=== PATIENT | female | born 1930 | race Caucasian/White ===

== ENCOUNTER 2016-11-12 07:16 | Day surgery (SDC) | payer MEDICARE, OTHER ==
[~2016-11-12] VITALS: Ht 162.6 cm; Wt 59.2 kg
[~2016-11-12 07:16] MED LIST: AC500T PO; BSC10SU PR; DONE5TAB4 PO; EZET10TA5; IBUP-1773 PO; LEVO75TA PO; MENT71OI TOP; MIRA25TA PO; NF-ESOM40C PO; NITR-65 PO; ONDAN4ODT PO; PARO20TA57; PARO40TA47 PO; PNT40TEC; SENN1TAB76 PO; THYR60TA4; TRAZ50TA67; TRIM100T7 PO; TRZ50T PO
[2016-11-12] MEDS ORDERED: 1/2 NS IV SOLUTION 1,000 ML IV ONE (07:19)
--- OUTSIDE RECORDS SUMMARY | 2016-11-12 07:20 | XMS REPORT | Continuity of Care Document ---
Author Author [facility] Organization [facility] Address Unknown Phone Unavailable Care Team Providers Care Pinion Staker Name Role Phone RAFAELA TODD MD PCP Insurance Providers Payer Name Policy Number Subscriber Name Relationship [employer]ps Medicare [id number] Monica Canales 18 Self / Same As Patient For Life [id number] Jay Canales 01 Advance Directives Directive Response Recorded Date/Time Advance Directives No 11/07/16 2:31pm Health Care Power of Gel Coat Sprayer No 11/07/16 2:31pm Organ Donor No 11/07/16 2:31pm Resuscitation Status Full Code 11/07/16 2:31pm Chief Complaint and Reason for Visit Chief Complaint Abdominal/GI Problems Reason for Visit hematochezia Problems Active Problems Medical Problem Onset Date Status Left hip pain Unknown Acute Low back pain Unknown Acute burst fracture L1 vertebral body Unknown Acute Medications Current Home Medications Medication Dose Units Route Directions Days/Qty Instructions Start Date Paroxetine Hcl 40 Mg 40 Mg Oral Daily 09/12/13 Esomeprazole Magnesium 40 Mg 1 Cap Oral Daily 30 09/12/13 Trimethoprim 100 Mg 100 Mg Oral Bedtime 09/12/13 Mirabegron 25 Mg 25 Mg Oral Daily 09/12/13 Acetaminophen 500 Mg 1,000 Mg Oral Three Times A Day 90 10/01/13 Bisacodyl 10 Mg 10 Mg Rectal Daily as needed for Constipation 10 10/01 Levothyroxine Sodium 75 Mcg 75 Mcg Oral Daily@0630 30 10/01/13 Senna 1 Ea 1 Ea Oral Twice A Day 60 10/01/13 Trazodone Hcl 50 Mg 50 Mg Oral Bedtime 30 10/01/13 Ibuprofen 600 Mg 600 Mg Oral Every 6 Hours as needed for Pain 07/19 Past Home Medications Medication Directions Ordered Status Trazodone Hcl 50 Mg Tablet, 11/23/09 Discontinued Paroxetine Hcl 20 Mg Tablet, 11/23/09 Discontinued Thyroid 60 Mg Tablet, 11/23/09 Discontinued Pantoprazole Sodium 40 Mg Tablet., 11/23/09 Discontinued Ezetimibe 10 Mg Tablet, 11/23/09 Discontinued Nitrofurantoin Macrocrystals 100 Mg Capsule, 1 Each Oral Twice A Day Discontinued Donepezil Hcl 5 Mg Tab, 5 Mg Oral Daily 10/01/13 Discontinued Menthol/Lanolin/Calamine/Znox 71 Gm Oint..gm., 0 Gm Topically Three Times A Day 10/01/13 Discontinued Ondansetron Hcl 4 Mg Tab, 4 Mg Oral Give Every 4 Hrs On Schedule as needed for Nausea/Vomiting 10/01/13 Discontinued Social History Social History Problem Response Recorded Date/Time Alcohol Use Denies Use 09/16/2013 1:18pm Recreational Drug Use No 09/16/2013 1:18pm Recent Foreign Travel No 09/16/2013 1:18pm Recent Infectious Disease Exposure No 09/16/2013 1:18pm Hospitalization with Isolation Denies 10/01/2013 5:20pm Sexually Transmitted Disease No 09/16/2013 1:18pm HIV/AIDS No 09/16/2013 1:18pm Smoking Status Former Smoker 11/07/2016 2:31pm Type Used Cigarettes 07/19/2016 12:03am Recent Hopitalizations No 07/19/2016 12:03am Sexually Transmitted Disease No 09/16/2013 1:18pm Hospitalization with Isolation Denies 10/01/2013 5:20pm Hx Sexually Transmitted Disorders No 08/05/2009 11:21pm Query Response Start Date Stop Date Smoking Status Former Smoker Hospital Discharge Instructions No hospital discharge instructions. Plan of Care Discharge Date 11/07/16 6:00pm Disposition 01 HOME, SELF-CARE Condition at Discharge Stable/Unchanged Instructions/Education Provided Gastrointestinal Bleeding (DC) Prescriptions See Medication Section Referrals RAFAELA TODD MD - Primary Care Physician Additional Instructions/Education All discharge instructions reviewed with patient and/or family. Voiced understanding. Call Dr. Beaver's office tomorrow morning before noon. The office number is [phone]. you'll be given an appointment and instructions on colonoscopy. If you continue to have large bloody stools or if you feel dizzy as if she might pass out when standing, return to the emergency room Functional Status No functional status results. Allergies, Adverse Reactions, Alerts Allergen Type Severity Reaction Status Last Updated NKANo Known Allergies Allergy Unknown Active 03/26/06 Immunizations No immunization records. Vital Signs Acute Vital Signs Vital Response Date/Time Temperature (Fahrenheit) 98.5 degrees F (97.6 - 99.5) 11/07/2016 2:31pm Temperature (Calculated Celsius) 36.17076 degrees C (36.4 - 37.5) 11/07/2016 2:31pm Pulse Rate (adult) 83 bpm (60 - 90) 11/07/2016 2:31pm Respiratory Rate 18 bpm (12 - 24) 11/07/2016 2:31pm Blood Pressure 146/58 mm Hg 11/07/2016 2:31pm Blood Pressure Mean 87 mm Hg 11/07/2016 2:31pm Pain Numeric Pain Scale 3 11/07/2016 2:31pm Height (Feet) 5 feet 11/07/2016 2:31pm Height (Inches) 4 inches 11/07/2016 2:31pm Height (Calculated Centimeters) 162.069805 cm 11/07/2016 2:31pm Weight (Pounds) 130 pounds 11/07/2016 2:31pm Weight (Calculated Kilograms) 58.048769 kilograms 11/07/2016 2:31pm Capillary Refill Capillary Refill Less Than 3 Seconds 11/07/2016 2:31pm Height 5 ft 4 in Weight 130 lb Body Mass Index 22.3 kg/m^2 Results Laboratory Results Test Name Result Units Flags Reference Collection Date/Time Result Date/ Time Comments White Blood Count 15.7 10^3/uL H 4.3-11.0 11/07/2016 2:40pm 11/07/2016 3: 01pm Red Blood Count 3.85 10^6/uL L 4.35-5.85 11/07/2016 2:40pm 11/07/2016 3: 01pm Hemoglobin 14.1 G/DL 11.5-16.0 11/07/2016 2:40pm 11/07/2016 3:01pm Hematocrit 41 % 35-52 11/07/2016 2:40pm 11/07/2016 3:01pm Mean Corpuscular Volume 106 FL H 80-99 11/07/2016 2:40pm 11/07/2016 3: 01pm Mean Corpuscular Hemoglobin 37 PG H 25-34 11/07/2016 2:40pm 11/07/2016 3: 01pm Mean Corpuscular Hemoglobin Concent 35 G/DL 32-36 11/07/2016 2:40pm 3:01pm Red Cell Distribution Width 17.0 % H 10.0-14.5 11/07/2016 2:40pm 2015 3:01pm Platelet Count 246 10^3/uL 130-400 11/07/2016 2:40pm 11/07/2016 3:01pm Mean Platelet Volume 11.1 FL H 7.4-10.4 11/07/2016 2:40pm 11/07/2016 3: 01pm Neutrophils (%) (Auto) 70 % 42-75 11/07/2016 2:40pm 11/07/2016 3:01pm Lymphocytes (%) (Auto) 21 % 12-44 11/07/2016 2:40pm 11/07/2016 3:01pm Monocytes (%) (Auto) 6 % 0-12 11/07/2016 2:40pm 11/07/2016 3:01pm Eosinophils (%) (Auto) 3 % 0-10 11/07/2016 2:40pm 11/07/2016 3:01pm Basophils (%) (Auto) 1 % 0-10 11/07/2016 2:40pm 11/07/2016 3:01pm Neutrophils # (Auto) 11.0 X 10^3 H 1.8-7.8 11/07/2016 2:40pm 11/07/2016 3 :01pm Lymphocytes # (Auto) 3.3 X 10^3 1.0-4.0 11/07/2016 2:40pm 11/07/2016 3: 01pm Monocytes # (Auto) 1.0 X 10^3 0.0-1.0 11/07/2016 2:40pm 11/07/2016 3: 01pm Eosinophils # (Auto) 0.4 10^3/uL H 0.0-0.3 11/07/2016 2:40pm 11/07/2016 3 :01pm Basophils # (Auto) 0.1 10^3/uL 0.0-0.1 11/07/2016 2:40pm 11/07/2016 3: 01pm Neutrophils % (Manual) 68 % 11/07/2016 2:40pm 11/07/2016 3:43pm Band Neutrophils 8 % 11/07/2016 2:40pm 11/07/2016 3:43pm Lymphocytes % (Manual) 16 % 11/07/2016 2:40pm 11/07/2016 3:43pm Monocytes % (Manual) 2 % 11/07/2016 2:40pm 11/07/2016 3:43pm Eosinophils % (Manual) 0 % 11/07/2016 2:40pm 11/07/2016 3:43pm Basophils % (Manual) 1 % 11/07/2016 2:40pm 11/07/2016 3:43pm Reactive Lymphocytes 5 % 11/07/2016 2:40pm 11/07/2016 3:43pm Anisocytosis MARKED 11/07/2016 2:40pm 11/07/2016 3:43pm Macrocytosis MODERATE 11/07/2016 2:40pm 11/07/2016 3:43pm Sodium Level 138 MMOL/L 135-145 11/07/2016 2:40pm 11/07/2016 3:18pm Potassium Level 3.8 MMOL/L 3.6-5.0 11/07/2016 2:40pm 11/07/2016 3:18pm Chloride Level 103 MMOL/L 98-107 11/07/2016 2:40pm 11/07/2016 3:18pm Carbon Dioxide Level 23 MMOL/L 21-32 11/07/2016 2:40pm 11/07/2016 3: 18pm Anion Gap 12 MMOL/L 5-14 11/07/2016 2:40pm 11/07/2016 3:18pm Blood Urea Nitrogen 19 MG/DL H 7-18 11/07/2016 2:40pm 11/07/2016 3:18pm Creatinine 0.82 MG/DL 0.60-1.30 11/07/2016 2:40pm 11/07/2016 3:18pm BUN/Creatinine Ratio 23 11/07/2016 2:40pm 11/07/2016 3:18pm Estimat Glomerular Filtration Rate > 60 11/07/2016 2:40pm 2015 3:18pm GFR INTERPRETIVE DATA UNITS FOR ESTIMATED GFR (eGFR): mL/min/1.73 M2 REFERENCE RANGE FOR ESTIMATED GFR (eGFR) eGFR NORMAL eGFR >60 MODERATELY DECREASED eGFR 30-59 SEVERLY DECREASED eGFR 15-29 KIDNEY FAILURE <15 (OR DIALYSIS) Glucose Level 140 MG/DL H 70-105 11/07/2016 2:40pm 11/07/2016 3:18pm Calcium Level 8.9 MG/DL 8.5-10.1 11/07/2016 2:40pm 11/07/2016 3:18pm Total Bilirubin 0.9 MG/DL 0.1-1.0 11/07/2016 2:40pm 11/07/2016 3:18pm Alkaline Phosphatase 69 U/L 40-136 11/07/2016 2:40pm 11/07/2016 3:18pm Aspartate Amino Transf (AST/SGOT) 39 U/L H 5-34 11/07/2016 2:40pm 2015 3:18pm Alanine Aminotransferase (ALT/SGPT) 37 U/L 0-55 11/07/2016 2:40pm 11/07 3:18pm Total Protein 7.5 G/DL 6.4-8.2 11/07/2016 2:40pm 11/07/2016 3:18pm Albumin 4.0 G/DL 3.2-4.5 11/07/2016 2:40pm 11/07/2016 3:18pm Procedures No known history of procedures. Encounters Encounter Location Arrival/Admit Date Discharge/Depart Date Attending Provider Departed Emergency Room [facility] 11/07/16 2:22pm 11/07 6:00pm SERGEI ROACH MD Recent Diagnosis
--- OUTSIDE RECORDS SUMMARY | 2016-11-12 07:21 | XMS REPORT | Continuity of Care Document ---
Author Author [facility] Organization [facility] Address Unknown Phone Unavailable Care Team Providers Care Alumni Relations Officer Name Role Phone RAFAELA TODD MD PCP Insurance Providers Payer Name Policy Number Subscriber Name Relationship [employer] Medicare [id number] Monica Canales 20 Self / Same As Patient For Life [id number] Jay Canales 01 Advance Directives Directive Response Recorded Date/Time Advance Directives No 11/07/16 2:31pm Health Care Power of Senior Restaurant Manager No 11/07/16 2:31pm Organ Donor No 11/07/16 [...] morning before noon. The office number is [phone]. you'll be given an appointment and instructions [...] - 99.5) 11/07/2016 2:31pm Temperature (Calculated Celsius) 36.08951 degrees C (36.4 - 37.5) 11/07/2016 2:31pm Pulse Rate (adult) 83 bpm (60 - 90) 11/07/2016 2:31pm Respiratory Rate 18 bpm (12 - 24) 11/07/2016 2:31pm Blood Pressure 146/58 mm Hg 11/07/2016 2:31pm Blood Pressure Mean 87 mm Hg 11/07/2016 2:31pm Pain Numeric Pain Scale 3 11/07/2016 2:31pm Height (Feet) 5 feet 11/07/2016 2:31pm Height (Inches) 4 inches 11/07/2016 2:31pm Height (Calculated Centimeters) 162.230046 cm 11/07/2016 2:31pm Weight (Pounds) 130 pounds 11/07/2016 2:31pm Weight (Calculated Kilograms) 58.220787 kilograms 11/07/2016 2:31pm Capillary Refill Capillary Refill [...] Date Attending Provider Departed Emergency Room [facility] 11/07/16 2:22pm 11/07 6:00pm SERGEI ROACH MD Recent Diagnosis
--- NOTE | 2016-11-12 07:24 | HISTORY AND PHYSICAL ---
DATE OF ADMISSION: 11/12/2016 COLONOSCOPY HISTORY AND PHYSICAL: DICTATING PHYSICIAN: Dr. Beaver Ms. Perea is a frail 86-year-old white female who awoke from sleep with abdominal discomfort. This was followed by vomiting and then bright red blood per rectum. This occurred Friday night. morning she presented to the emergency room having had 1 or 2 more small volume loose, bloody stools. She denied chills or fever. She comes with her , who actually she defers to answering a number of the questions placed to her. She was alert and oriented and appropriate during the interview and appropriately recalling past medical history. She believes that she has been slowly losing weight and reports no past history of colonoscopy or GI procedure. She does have a past history of breast cancer for which she underwent mastectomy at the age of 29. She had apparent prophylactic mastectomy in 1992 on the opposite side. She tends towards constipation; had not had any bowel habit changes up until Friday evening. Currently her diarrhea has resolved. Dr. Markham did a rectal examination in the emergency room and reported bloody mucus only and no abnormalities to digital inspection. A CT scan was obtained and there was an area of thickening noted in the descending colon, without abnormal pericolonic inflammatory findings. There was no evidence for distention and no evidence for reported diverticular disease. There was a 7 mm micronodular density in the left lateral lobe of the liver but it was stable compared to a CT scan done in May 2013. PAST MEDICAL HISTORY: Significant for depression and urinary incontinence with overactive bladder. She follows with Dr. Suarez for this and had the vaginal sling procedure 5 years ago that did not improve her incontinence per her report. She has a past history of depression and does have frequent urinary tract infection for which she is on trimethoprim for prophylaxis at h.s. 100 mg. OTHER MEDICATIONS: Include: 1. Trazodone 50 mg daily. 2. Senna 1 tablet b.i.d. 3. paroxetine 40 mg daily. 4. Myrbetriq 25 mg daily 5. L-thyroxine 75 micrograms daily. 6. Ibuprofen 600 mg q.6 hours p.r.n. 7. Nexium 40 mg daily. 8. Acetaminophen p.r.n. SOCIAL HISTORY: She is retired, lives with her at home and who is her primary caregiver. She presented to the office in a wheelchair. She has a past 40 pack-year smoking history but quit 30 years ago with no significant alcohol intake. FAMILY HISTORY: She is not aware of any family history for colon cancer. PHYSICAL EXAMINATION: Revealed a frail, elderly white female who appeared to be in no acute distress. NECK: Revealed no JVD, adenopathy or bruits. CHEST: Clear. CV: Revealed a regular rate and rhythm with a soft 1 to 2/6 systolic ejection murmur heard best at the second right intercostal space without evidence for pulsus parvus or tardus. ABDOMEN: Soft. Supple without masses, organomegaly or tenderness. Bowel sounds are positive. No bruits are noted. EXTREMITIES: Reveal 1+ bilateral edema to the mid tibia. LABORATORY EVALUATION: From the emergency room revealed hemoglobin of 14.1. Her chemistry panel was unremarkable except for a BUN of 19, creatinine was 0.8. Blood sugar was mildly elevated at 140, nonfasting. Macrocytosis was reported with an MCV of 106, platelet count was normal at 246. ASSESSMENT: 1. For further investigation of CT abnormalities in the descending colon concerning for cancer with bight red blood per rectum, the patient was given the sports drink prep and set up for Friday the . In explaining colonoscopy and review of her emergency room records, history obtaining and answering questions, 45 minutes of care time was spent by myself with another 15 minutes of staff time setting up the procedure and going over prep instructions. In addition we will have the patient take 4 mg of Zofran an hour before starting the prep. 2. Macrocytosis without anemia, we will defer to Dr. Aguilar in regards to whether or not a B12 level needs to be drawn if this has not been done in the recent past. Sincerely, Job ID: [id number] Dictated Date: 11/08/2016 12:14:00 Sewing Inspector Date: 11/08/2016 16:16:32/rekha FOLEY
[2016-11-12] MEDS ORDERED: 1/2 NS IV SOLUTION 1,000 ML IV STA (07:43)
[2016-11-12 07:45] VITALS: BP 124/68
[2016-11-12] MEDS ORDERED: NALOXONE 0.4 MG/ML 1 ML (NARCAN) VIAL IVP PRN (07:45)
[2016-11-12] MEDS ORDERED: FLUMAZENIL (ROMAZICON) 0.1 MG/ML 5 ML VIAL INJ PRN (07:45)
[2016-11-12] MEDS ORDERED: LIDOCAINE JELLY 2% (XYLOCAINE) 5 ML TUBE MM PRN (07:45)
--- NOTE | 2016-11-12 08:00 | Pre-Op Note & Conscious Sedat ---
Pre-Operative Progress Note H&P Reviewed The H&P was reviewed, patient examined and no changes noted. Date H&P Reviewed: Nov 12, 2016 Time H&P Reviewed: 08:00 Conscious Sedation Pre-Proced ASA Class: 3 Airway Mallampati Classification: ([place] appropriate class) I. II. III, IV Lungs Heart ASA score ASA 1: a normal healthy patient ASA 2: a patient with a mild systemic disease (mid diabetes, controlled hypertension, obesity ASA 3: a patient with a severe systemic disease that limits activity (angina , COPD, prior Myocardial infarction) ASA 4: a patient with an incapacitating disease that is a constant threat to life (CHF, renal failure) ASA 5: a moribund patient not expected to survive 24 hrs. (ruptured aneurysm) ASA 6: a declared brain patient whose organs are being harvested. For emergent operations, add the letter E after the classification Grade 2 Sedation Plan: Analgesia, Amnesia, Plan communicated to team members, Discussed options with patient/fam, Discussed risks with patient/fam Note The patient is an appropriate candidate to undergo the planned procedure, sedation, and anesthesia. The patient immediately re-assessed prior to indication. LENNY DAVENPORT MD Nov 12, 2016 08:00
[2016-11-12] MEDS: MIDAZOLAM 2 MG/2 ML (VERSED) VIAL IVP PRN ×2 (08:10→08:18)
[2016-11-12] MEDS: fentaNYL INJECTION 100 MCG/2 ML AMP IVP PRN ×2 (08:11→08:20)
[2016-11-12 09:00] VITALS: BP 143/51
[2016-11-12 09:30] VITALS: BP 131/68
[2016-11-12 09:45] VITALS: BP 131/68
--- NOTE | 2016-11-12 09:48 | PROCEDURE REPORT ---
PROCEDURE PHYSICIAN: LENNY DAVENPORT DATE OF PROCEDURE: 11/12/2016 COLONOSCOPY SUMMARY: PRIMARY CARE PHYSICIAN: Dr. Aguilar INDICATION FOR THE PROCEDURE: Rectal bleeding, abnormal descending colonic findings on CT abdomen. PROCEDURE: The patient was placed in left lateral decubitus position. Prior to undergoing colonoscopy, digital rectal evaluation was performed. Anal sphincter tone was lax and the perianal reflex was not elicited. No other abnormalities were noted to digital inspection of the distal rectal vault or anal canal. The colonoscope was inserted into the rectum and under visualization, advanced to the cecum. The cecum was identified by identification of the ileocecal valve and cecal strap. Careful inspection was made as the colonoscope was withdrawn. The patient had more sensitivity than expected considering her age and required little more medication than I would have expected. FINDINGS: There was no evidence for internal or external hemorrhoids. The rectum was unremarkable. The sigmoid colon was unremarkable as well. No diverticulum were noted. No evidence for neoplasia was noted. The majority of the descending colon was erythematous with mild edema. No evidence for ulceration was noted. A biopsy was obtained. No induration of the colon in these areas was present nor was significant friability noted. The transverse colon, hepatic flexure, ascending colon and cecum were unremarkable. ASSESSMENT: Diffuse inflammatory change involving the majority of the descending colon is present without evidence for ulceration. Considering this patient's advanced age and frail status, resolving ischemic colitis is strongly suspected. A biopsy was obtained and submitted for histopathology. There is no evidence for neoplasia on today's evaluation. Only other abnormality noted was lax anal sphincter tone and absence of the perianal reflex. The patient was reassured by today's findings. Symptoms have improved, there has been no further rectal bleeding. If pathology suggests something other than ischemic colitis, there will be an addendum to this report. I thank you for the referral of this pleasant lady. Sincerely, Job ID: [id number] Dictated Date: 11/12/2016 08:54:11 Alumina Refinery Operator Date: 11/12/2016 09:43:43 / rekha FOLEY
== END 2016-11-12 09:45 | disposition home or self-care (01) ==
LOC: SDC 07:16
PROVIDERS: ATTEND Internal Medicine
DX: K52.9 Noninfective gastroenteritis and colitis, unspecified (principal)

== ENCOUNTER 2017-07-24 14:41 | Emergency (ER) | payer MEDICARE, OTHER ==
[~2017-07-24] VITALS: Ht 162.6 cm; Wt 54.4 kg
[2017-07-24 15:44] LABS: BASOPHILS # (AUTO) 0.1 10^3/uL (0.0-0.1); BASOPHILS % (AUTO) 1 % (0-10); EOSINOPHILS # (AUTO) 0.7 10^3/uL (0.0-0.3); EOSINOPHILS % (AUTO) 7 % (0-10); LYMPHOCYTES # (AUTO) 3.6 X 10^3 (1.0-4.0); LYMPHOCYTES % (AUTO) 37 % (12-44); MEAN CORPUSCULAR HEMOGLOBIN 38 PG (25-34); MEAN CORPUSCULAR HGB CONC 36 G/DL (32-36); MEAN CORPUSCULAR VOLUME 105 FL (80-99); MEAN PLATELET VOLUME 11.3 FL (7.4-10.4); MONOCYTES # (AUTO) 0.9 X 10^3 (0.0-1.0); MONOCYTES % (AUTO) 10 % (0-12); NEUTROPHILS # (AUTO) 4.4 X 10^3 (1.8-7.8); NEUTROPHILS % (AUTO) 46 % (42-75); PLATELET COUNT 282 10^3/uL (130-400); RED BLOOD COUNT 3.37 10^6/uL (4.35-5.85); RED CELL DISTRIBUTION WIDTH 17.1 % (10.0-14.5); WHITE BLOOD COUNT 9.7 10^3/uL (4.3-11.0)
[2017-07-24 15:46] LABS: KETONES,URINE 2+ (NEGATIVE); LEUKOCYTE ESTERASE ,URINE 3+ (NEGATIVE); NITRITE,URINE POSITIVE (NEGATIVE); PH,URINE 5 (5-9); PROTEIN,URINE 3+ (NEGATIVE); UROBILINOGEN,URINE 4 MG/DL (NORMAL)
[2017-07-24 16:03] LABS: ALANINE AMINOTRANSFERASE 25 U/L (0-55); ALBUMIN 3.8 GM/DL (3.2-4.5); ANION GAP 10 MMOL/L (5-14); ASPARTATE AMINO TRANSFERASE 31 U/L (5-34); BILIRUBIN,TOTAL 0.9 MG/DL (0.1-1.0); BLOOD UREA NITROGEN 22 MG/DL (7-18); BUN/CREATININE RATIO 26; CALCIUM 9.2 MG/DL (8.5-10.1); CARBON DIOXIDE 25 MMOL/L (21-32); CHLORIDE 104 MMOL/L (98-107); CREATININE SERUM 0.84 MG/DL (0.60-1.30); GFR ESTIMATED > 60; GLUCOSE 112 MG/DL (70-105); SODIUM 139 MMOL/L (135-145); TOTAL PROTEIN 7.6 GM/DL (6.4-8.2)
[2017-07-24 16:04] LABS: BILIRUBIN,URINE 1+ (NEGATIVE); WBC,URINE TNTC /HPF
--- NOTE | 2017-07-24 16:32 | ED GU-Female ---
General Chief Complaint: -Female Stated Complaint: VAG BLEEDING Nursing Triage Note: pt reports vaginal bleeding x 10 days. PT states she has had complications on and off since she had her bladder sx a year ago. Pt also reports low pelvic pain. Nursing Sepsis Screen: No Definite Risk Source: patient Exam Limitations: no limitations History of Present Illness Time seen by provider: 16:25 Initial Comments The patient and her report that she has been having blood which appears to be vaginal in the toilet for the last week or 10 days. She has previously had a hysterectomy. She had a bladder sling procedure performed by Dr. Suarez several years ago in hopes of improving her incontinency. This has not been the case. She reports incontinency and pain along the anterior pelvis. She denies fever or chills. Timing/Duration: week Severity/Quality: moderate Location: suprapubic Radiation: none Activities at Onset: none Sexual Manti History: not active Allergies and Home Medications Allergies Coded Allergies: NKANo Known Allergies (Verified Allergy, Unknown, 03/26/06) Home Medications Acetaminophen 500 Mg Tablet, 1,000 MG PO TID, #90 Prescribed by: KRYSTA CXO on 10/01/13 1127 Bisacodyl 10 Mg Supp, 10 MG MI DAILY PRN for CONSTIPATION, #10 Prescribed by: KRYSTA COX on 10/01/13 1127 Esomeprazole Mag Trihydrate 40 Mg Capsule.dr, 1 CAP PO DAILY, #30 (Reported) Ibuprofen 600 Mg Tablet, 600 MG PO Q6H PRN for PAIN, #20 Prescribed by: THIAGO SMITH on 07/19/16 0149 Levothyroxine Sodium 75 Mcg Tablet, 75 MCG PO DAILY@0630, #30 Prescribed by: KRYSTA COX on 10/01/13 1127 Mirabegron 25 Mg Tab.er.24h, 25 MG PO DAILY, (Reported) Paroxetine Hcl 40 Mg Tablet, 40 MG PO DAILY, (Reported) Senna 1 Ea Tablet, 1 EA PO BID, #60 Prescribed by: KRYSTA COX on 10/01/13 1127 Trazodone Hcl 50 Mg Tablet, 50 MG PO HS, #30 Prescribed by: KRYSTA COX on 10/01/13 1127 Trimethoprim 100 Mg Tablet, 100 MG PO HS, (Reported) Constitutional: see HPI EENTM: no symptoms reported Respiratory: no symptoms reported Cardiovascular: no symptoms reported Gastrointestinal: no symptoms reported Genitourinary: see HPI, hematuria, incontinence, pain Musculoskeletal: no symptoms reported Skin: no symptoms reported Psychiatric/Neurological: No Symptoms Reported Past Trdrcco-Hwoupy-Gxxmck Hx Patient Social History Alcohol Use: Denies Use Recreational Drug Use: No Smoking Status: Former Smoker Type Used: Cigarettes Former Smoker, Quit: Jul 11, 1982 Recent Foreign Travel: No Contact w/Someone Who Travel: No Recent Infectious Disease Expo: No Recent Hopitalizations: No Physical Abuse: No Sexual Abuse: No Mistreated: No Immunizations Up To Date Tetanus Booster (TDap): Unknown Date of Pneumonia Vaccine: Sep 10, 2008 Date of Influenza Vaccine: Aug 10, 2013 Seasonal Allergies Seasonal Allergies: No Surgeries History of Surgeries: Yes (BLADDER TIE UP, mastectomy x2, l knee) Surgeries: Bladder Surgery, Breast, Hysterectomy, Orthopedic, Tonsillectomy Respiratory History of Respiratory Disorde: No Respiratory Disorders: Chronic Bronchitis Currently Using CPAP: No Currently Using BIPAP: No Cardiovascular History of Cardiac Disorders: No Neurological History of Neurological Disord: Yes (PERIPHERHAL NEUROPATHY) Neurological Disorders: Dementia, Neuropathy Reproductive System : No Hx Reproductive Disorders: No Sexually Transmitted Disease: No HIV/AIDS: No Female 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 Genitourinary Genitourinary Disorders: UTI-Chronic Gastrointestinal History of Gastrointestinal Di: Yes Gastrointestinal Disorders: Gastroesophageal Reflux Musculoskeletal History of Musculoskeletal Dis: Yes (LEFT KNEE REPLACEMENT; L1 BURST FRACTURE 2012) Musculoskeletal Disorders: Osteoporosis, Arthritis, Fibromyalgia, Back Injury, Scoliosis Endocrine History of Endocrine Disorders: Yes Endocrine Disorders: Hypothyroidsim Cancer History of Cancer: No Psychosocial History of Psychiatric Problem: Yes Behavioral Health Disorders: Depression Suicide Risk Score: 0 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) Blood Transfusions History of Blood Disorders: Yes (ANEMIA) Physical Exam Vital Signs Vital Sign - Last 12Hours 07/24/17 15:02 Pulse 91 Resp 18 B/P (MAP) 131/57 Pulse Ox 95 Capillary Refill : Less Than 3 Seconds General Appearance: mild distress HEENT: normal ENT inspection Neck: full range of motion Cardiovascular: normal peripheral pulses, regular rate, rhythm, no edema, no gallop, no JVD, no murmur Respiratory: chest non-tender, lungs clear, normal breath sounds, no respiratory distress, no accessory muscle use, respiratory distress Gastrointestinal: normal bowel sounds, soft, no organomegaly, no pulsatile mass , tenderness (suprapubic) Back: normal inspection, no CVA tenderness, no vertebral tenderness, CVA tenderness (R), CVA tenderness (L) Extremities: normal range of motion, non-tender, normal inspection, no pedal edema, no calf tenderness, normal capillary refill, pelvis stable 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, no motor/sensory deficits, alert, normal mood/affect, oriented x 3 Skin: normal color, warm/dry, cyanosis, cool, diaphoresis, pallor Progress/Results/Core Measures Results/Orders Lab Results Laboratory Tests Test 07/24/17 15:35 Range/Units White Blood Count 9.7 4.3-11.0 10^3/uL Red Blood Count 3.37 L 4.35-5.85 10^6/uL Hemoglobin 12.7 11.5-16.0 G/DL Hematocrit 35 35-52 % Mean Corpuscular Volume 105 H 80-99 FL Mean Corpuscular Hemoglobin 38 H 25-34 PG Mean Corpuscular Hemoglobin Concent 36 32-36 G/DL Red Cell Distribution Width 17.1 H 10.0-14.5 % Platelet Count 282 130-400 10^3/uL Mean Platelet Volume 11.3 H 7.4-10.4 FL Neutrophils (%) (Auto) 46 42-75 % Lymphocytes (%) (Auto) 37 12-44 % Monocytes (%) (Auto) 10 0-12 % Eosinophils (%) (Auto) 7 0-10 % Basophils (%) (Auto) 1 0-10 % Neutrophils # (Auto) 4.4 1.8-7.8 X 10^3 Lymphocytes # (Auto) 3.6 1.0-4.0 X 10^3 Monocytes # (Auto) 0.9 0.0-1.0 X 10^3 Eosinophils # (Auto) 0.7 H 0.0-0.3 10^3/uL Basophils # (Auto) 0.1 0.0-0.1 10^3/uL Urine Color BROWN H Urine Clarity VERY CLOUDY H Urine pH 5 5-9 Urine Specific [place] 1.025 H 1.016-1.022 Urine Protein 3+ H NEGATIVE Urine Glucose (UA) NEGATIVE NEGATIVE Urine Ketones 2+ H NEGATIVE Urine Nitrite POSITIVE H NEGATIVE Urine Bilirubin 1+ H NEGATIVE Urine Urobilinogen 4 H NORMAL MG/DL Urine Leukocyte Esterase 3+ H NEGATIVE Urine RBC (Auto) 5+ H NEGATIVE Urine RBC TNTC H /HPF Urine WBC TNTC H /HPF Urine Crystals NONE /LPF Urine Bacteria LARGE H /HPF Urine Casts NONE /LPF Urine Mucus NEGATIVE /LPF Urine Culture Indicated YES Sodium Level 139 135-145 MMOL/L Potassium Level 4.0 3.6-5.0 MMOL/L Chloride Level 104 98-107 MMOL/L Carbon Dioxide Level 25 21-32 MMOL/L Anion Gap 10 5-14 MMOL/L Blood Urea Nitrogen 22 H 7-18 MG/DL Creatinine 0.84 0.60-1.30 MG/DL Estimat Glomerular Filtration Rate > 60 BUN/Creatinine Ratio 26 Glucose Level 112 H 70-105 MG/DL Calcium Level 9.2 8.5-10.1 MG/DL Total Bilirubin 0.9 0.1-1.0 MG/DL Aspartate Amino Transf (AST/SGOT) 31 5-34 U/L Alanine Aminotransferase (ALT/SGPT) 25 0-55 U/L Alkaline Phosphatase 73 40-136 U/L Total Protein 7.6 6.4-8.2 GM/DL Albumin 3.8 3.2-4.5 GM/DL My Orders Orders - SERGEI ROACH MD Cbc With Automated Diff (07/24/17 15:19) Comprehensive Metabolic Panel (07/24/17 15:19) Ua Culture If Indicated (07/24/17 15:19) Urine Culture (07/24/17 15:35) Vital Signs/I&O Vital Sign - Last 12Hours 07/24/17 15:02 Pulse 91 Resp 18 B/P (MAP) 131/57 Pulse Ox 95 Blood Pressure Mean: 81 Departure Communication (Admissions) Progress Notes UA shows RBCs and WBCs too numerous to count. Impression Impression: Primary Impression: urinary tract infection Additional Impression: Hematuria Disposition: 01 HOME, SELF-CARE Condition: Stable/Unchanged Departure-Patient Inst. Decision time for Depature: 16:30 Referrals: RAFAELA TODD MD (PCP/Family) Primary Care Physician Patient Instructions: Urinary Tract Infection, Adult (DC) Add. Discharge Instructions: All discharge instructions reviewed with patient and/or family. Voiced understanding. Take medication as prescribed. Make an appointment to see your provider next week for consideration of cystoscopy. [place] for pain. This is likely to be constipating. Use MiraLAX to avoid this. Scripts Hydrocodone/Acetaminophen ([place] 5-325 Tablet) 1 Each Tablet 1 EACH PO 4 times a day, #10 TAB Prov: SERGEI ROACH MD 07/24/17 [nORCO] No Conflict Check Prov: SERGEI ROACH MD 07/24/17 Cefdinir (Cefdinir) 300 Mg Capsule 300 MG PO TWICE A DAY, #14 CAP Prov: SERGEI ROACH MD 07/24/17 SERGEI ROACH MD Jul 24, 2017 16:32
[2017-07-24] MEDS ORDERED: HYDR-757 PO (16:35)
[2017-07-24] MEDS ORDERED: NORCO (16:35)
[2017-07-24] MEDS ORDERED: CEFD300C3 PO (16:35)
[2017-07-24 17:00] VITALS: BP 123/70
== END 2017-07-24 17:00 | disposition home or self-care (01) ==
LOC: EDUNIT# 14:41 → ER 14:44
DX: N39.0 Urinary tract infection, site not specified (principal); K21.9 Gastro-esophageal reflux disease without esophagitis; F03.90 Unspecified dementia, unspecified severity, without behavioral disturbance, psychotic disturbance, mood disturbance, and anxiety; M81.0 Age-related osteoporosis without current pathological fracture; M19.90 Unspecified osteoarthritis, unspecified site; M41.20 Other idiopathic scoliosis, site unspecified; E03.9 Hypothyroidism, unspecified; F32.9 Major depressive disorder, single episode, unspecified; Z96.652 Presence of left artificial knee joint; Z90.13 Acquired absence of bilateral breasts and nipples; Z90.89 Acquired absence of other organs; Z87.891 Personal history of nicotine dependence; Z90.710 Acquired absence of both cervix and uterus; Z98.890 Other specified postprocedural states
CPT/HCPCS: 36415; 51701; 80053; 81000; 85025; 87077; 87088; 87186

== ENCOUNTER → 2019-06-09 | Outpatient (CLI) | payer MEDICARE, OTHER ==
[~2019-06-09] MED LIST changes: +CATHETER FLUSH 10 ML SYR IV PRN; +CEFD300C3 PO; +HOLD METFORMIN - RECEIVED CONTRAST 20 ML VIAL IV SCH; +HYDR-4226 PO; +IOHEXOL 350 MG/ML 100 ML (OMNIPAQUE 350) VIAL IV ONE; +NORCO; +NS 100 ML (IVPB) BAG IV ONE
--- NOTE | 2019-06-09 15:40 | Diagnostic Imaging Report ---
PROCEDURE: CT abdomen and pelvis with contrast. TECHNIQUE: Multiple contiguous axial images were obtained through the abdomen and pelvis after administration of intravenous contrast. Auto Exposure Controls were utilized during the CT exam to meet ALARA standards for radiation dose reduction. INDICATION: Left lower quadrant pain. FINDINGS: Comparison is 09/16/2017. Limited views of the lower thorax reveal aortic valvular calcifications concerning for aortic stenosis. Liver is normal. No focal liver lesions are seen. There is cholelithiasis without cholecystitis. Portal vein is patent. Pancreas, spleen and adrenal glands are normal. Kidneys enhance symmetrically without focal lesion. No hydronephrosis. Urinary bladder is decompressed but appears thickwalled, correlate for evidence of cystitis. There are no dilated loops of large or small bowel. There is no bowel obstruction or inflammation. There is no abdominal or pelvic lymphadenopathy. The abdominal aorta is atherosclerotic without aneurysm. No free fluid or air. There are no suspicious osseous lesions. Compression fracture of L1, unchanged from prior exam. This results in mild spinal canal stenosis. IMPRESSION: 1. Decompressed but thickwalled and mucosally hyperenhancing urinary bladder concerning for cystitis. Dictated by: Dictated on workstation # [id number]
== END ==
LOC: RAD 13:03
PROVIDERS: ATTEND Internal Medicine
DX: R10.32 Left lower quadrant pain (principal)
CPT/HCPCS: 74177

== ENCOUNTER 2019-12-06 12:00 | Emergency (ER) | payer MEDICARE, OTHER ==
[~2019-12-06] VITALS: Ht 162.5 cm; Wt 35.8 kg
[~2019-12-06 12:00] MED LIST changes: -CATHETER FLUSH 10 ML SYR IV PRN; -HOLD METFORMIN - RECEIVED CONTRAST 20 ML VIAL IV SCH; -IOHEXOL 350 MG/ML 100 ML (OMNIPAQUE 350) VIAL IV ONE; -NS 100 ML (IVPB) BAG IV ONE
--- NOTE | 2019-12-06 14:07 | ED GI ---
General Chief Complaint: Abdominal/GI Problems Stated Complaint: CONSTIPATION Nursing Triage Note: Pt to ED via EMS for "rectal and vaginal blockage." Pt reports severe pain. Pt reports last BM at least a week ago. Pt reports trying several OTC remedies for constipation without any relief. Pt's reports rectum is swollen and "something is hanging out." Sepsis Screen: No Definite Risk Source of Information: Patient Exam Limitations: No Limitations History of Present Illness Date Seen by Provider: Dec 06, 2019 Time Seen by Provider: 14:05 Initial Comments To ER per EMS from home with reports of rectal and vaginal blockage". She has pelvic pain and has been unable to have a bowel movement for 3 days. no nausea or vomiting Timing/Duration: 1-2 Days Severity/Quality: Moderate Location: Other (pelvic) Radiation: No Radiation Activities at Onset: None Associated Symptoms: Denies Symptoms Allergies and Home Medications Allergies Coded Allergies: cefdinir (Verified Allergy, Mild, RASH, 07/26/17) Home Medications Acetaminophen 500 Mg Tablet, 1,000 MG PO TID Prescribed by: KRYSTA COX on 10/01/13 1127 Bisacodyl 10 Mg Supp, 10 MG DE DAILY PRN for CONSTIPATION Prescribed by: KRYSTA COX on 10/01/13 1127 Cefdinir 300 Mg Capsule, 300 MG PO TWICE A DAY Prescribed by: SERGEI ROACH on 07/24/17 1635 Esomeprazole Mag Trihydrate 40 Mg Capsule.dr, 1 CAP PO DAILY, (Reported) Hydrocodone/Acetaminophen 1 Each Tablet, 1 EACH PO 4 times a day Prescribed by: SERGEI ROACH on 07/24/17 1635 Ibuprofen 600 Mg Tablet, 600 MG PO Q6H PRN for PAIN Prescribed by: THIAGO SMITH on 07/19/16 0149 Levothyroxine Sodium 75 Mcg Tablet, 75 MCG PO DAILY@0630 Prescribed by: KRYSTA COX on 10/01/13 112 Mirabegron 25 Mg Tab.er.24h, 25 MG PO DAILY, (Reported) Paroxetine Hcl 40 Mg Tablet, 40 MG PO DAILY, (Reported) Senna 1 Ea Tablet, 1 EA PO BID Prescribed by: KRYSTA COX on 10/01/13 112 Trazodone Hcl 50 Mg Tablet, 50 MG PO HS Prescribed by: KRYSTA COX on 10/01/13 1127 Trimethoprim 100 Mg Tablet, 100 MG PO HS, (Reported) Patient Home Medication List Home Medication List Reviewed: Yes Review of Systems Review of Systems Constitutional: see HPI EENTM: No Symptoms Reported Respiratory: No Symptoms Reported Cardiovascular: No Symptoms Reported Gastrointestinal: See HPI, Abdominal Pain, Constipated Genitourinary: No Symptoms Reported Musculoskeletal: no symptoms reported Skin: no symptoms reported Psychiatric/Neurological: No Symptoms Reported Endocrine: No Symptoms Reported Past Vzfuphd-Obztcf-Hydxea Hx Patient Social History Alcohol Use: Denies Use Recreational Drug Use: No Type Used: Cigarettes Former Smoker, Quit: Jul 11, 1982 2nd Hand Smoke Exposure: No Recent Foreign Travel: No Contact w/Someone Who Travel: No Recent Infectious Disease Expo: No Recent Hopitalizations: No Immunizations Up To Date Tetanus Booster (TDap): Unknown Date of Pneumonia Vaccine: Sep 10, 2008 Date of Influenza Vaccine: Aug 10, 2013 Seasonal Allergies Seasonal Allergies: No Past Medical History Surgeries: Yes (BLADDER TIE UP, mastectomy x2, l knee) Bladder Surgery, Breast, Hysterectomy, Orthopedic, Tonsillectomy Respiratory: No Chronic Bronchitis Currently Using CPAP: No Currently Using BIPAP: No Cardiac: No Neurological: Yes (PERIPHERHAL NEUROPATHY) Dementia, Neuropathy Reproductive Disorders: No 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 Sexually Transmitted Disease: No HIV/AIDS: No UTI-Chronic Gastrointestinal: Yes Gastroesophageal Reflux Musculoskeletal: Yes (LEFT KNEE REPLACEMENT; L1 BURST FRACTURE 2012) Osteoporosis, Arthritis, Fibromyalgia, Back Injury, Scoliosis Endocrine: Yes Hypothyroidsim Cancer: No Psychosocial: Yes Depression Integumentary: Yes (ROSACEA) Blood Disorders: Yes (ANEMIA) Physical Exam Vital Signs Vital Signs - First Documented 12/06/19 12:38 Temp 36.7 Pulse 90 Resp 15 B/P (MAP) 123/86 (98) Pulse Ox 99 O2 Delivery Room Air Capillary Refill : Less Than 3 Seconds Height/Weight/BMI Height: 5'4.00" Weight: 120lbs. 8.0oz. 54.471627ao; 13.00 BMI Method:Stated General Appearance: WD/WN, no apparent distress Neck: non-tender, full range of motion Respiratory: no respiratory distress, no accessory muscle use Gastrointestinal: normal bowel sounds, non tender, soft Rectal: hemorrhoids (there are some external hemorrhoids none of which are bleeding or obviously thrombosed. She does have a large fecal impaction which was manually disimpacted) Extremities: normal range of motion, non-tender Neurologic/Psychiatric: alert, normal mood/affect, oriented x 3 Skin: normal color, warm/dry Progress/Results/Core Measures Results/Orders Lab Results Laboratory Tests Test 12/06/19 14:20 Range/Units White Blood Count 12.3 H 4.3-11.0 10^3/uL Red Blood Count 3.28 L 4.35-5.85 10^6/uL Hemoglobin 11.4 L 11.5-16.0 G/DL Hematocrit 33 L 35-52 % Mean Corpuscular Volume 102 H 80-99 FL Mean Corpuscular Hemoglobin 35 H 25-34 PG Mean Corpuscular Hemoglobin Concent 34 32-36 G/DL Red Cell Distribution Width 18.9 H 10.0-14.5 % Platelet Count 350 130-400 10^3/uL Mean Platelet Volume 10.2 7.4-10.4 FL Neutrophils (%) (Auto) 61 42-75 % Lymphocytes (%) (Auto) 27 12-44 % Monocytes (%) (Auto) 9 0-12 % Eosinophils (%) (Auto) 2 0-10 % Basophils (%) (Auto) 1 0-10 % Neutrophils # (Auto) 7.5 1.8-7.8 X 10^3 Lymphocytes # (Auto) 3.3 1.0-4.0 X 10^3 Monocytes # (Auto) 1.2 H 0.0-1.0 X 10^3 Eosinophils # (Auto) 0.3 0.0-0.3 10^3/uL Basophils # (Auto) 0.1 0.0-0.1 10^3/uL Sodium Level 135 135-145 MMOL/L Potassium Level 4.2 3.6-5.0 MMOL/L Chloride Level 101 98-107 MMOL/L Carbon Dioxide Level 25 21-32 MMOL/L Anion Gap 9 5-14 MMOL/L Blood Urea Nitrogen 17 7-18 MG/DL Creatinine 1.11 0.60-1.30 MG/DL Estimat Glomerular Filtration Rate 46 BUN/Creatinine Ratio 15 Glucose Level 100 70-105 MG/DL Calcium Level 9.0 8.5-10.1 MG/DL Smear Scan YES My Orders Orders - SHELBY SCOTT APRN Ua Culture If Indicated (12/06/19 12:23) Cbc With Automated Diff (12/06/19 13:54) Basic Metabolic Panel (12/06/19 13:54) Acute Abd Series (12/06/19 13:54) Na Phos/Na Biphos Enema (Fleet Enema Ernie (12/06/19 14:15) Acetaminophen Tablet/Caplet (Tylenol T (12/06/19 14:30) Ibuprofen Tablet (Motrin Tablet) (12/06/19 14:30) Lidocaine 2% (Urojet) (Xylocaine Urojet) (12/06/19 15:45) Soap Suds Enema (12/06/19 15:55) Magnesium Citrate Oral Soln (Citrate Of (12/06/19 16:00) Medications Given in ED Current Medications Medications Dose Ordered Sig/René Route Start Time Stop Time Status Last Admin Dose Admin Acetaminophen 650 mg ONCE ONCE PO 12/06/19 14:30 12/06/19 14:31 DC 12/06/19 14:51 650 MG Ibuprofen 600 mg ONCE ONCE PO 12/06/19 14:30 12/06/19 14:31 DC 12/06/19 14:53 600 MG Lidocaine HCl 10 ml ONCE ONCE TOP 12/06/19 15:45 12/06/19 15:46 DC 12/06/19 15:41 10 ML Magnesium Citrate 150 ml ONCE ONCE PO 12/06/19 16:00 12/06/19 16:01 DC 12/06/19 16:10 150 ML Sodium Biphosphate/ Sodium Phosphate 1 ea ONCE ONCE DE 12/06/19 14:15 12/06/19 14:16 DC 12/06/19 15:30 1 EA Vital Signs/I&O 12/06/19 12:38 Temp 36.7 Pulse 90 Resp 15 B/P (MAP) 123/86 (98) Pulse Ox 99 O2 Delivery Room Air Blood Pressure Mean: 98 Departure Impression Primary Impression: Constipation Qualified Codes: K59.00 - Constipation, unspecified Disposition: 01 HOME, SELF-CARE Condition: Stable Departure-Patient Inst. Decision time for Depature: 17:14 Referrals: RAFAELA TODD MD (PCP/Family) Primary Care Physician Patient Instructions: Constipation, Adult (DC) Add. Discharge Instructions: 1. Take the MiraLAX, one capful dissolved in a glass of water twice a day All discharge instructions reviewed with patient and/or family. Voiced understanding. Scripts Polyethylene Glycol 3350 (Miralax) 17 Gm Powd.pack 17 GM PO BID, #20 EACH Prov: SHELBY SCOTT APRN 12/06/19 SHELBY SCOTT APRN Dec 06, 2019 14:06
[2019-12-06] MEDS ORDERED: FLEET ENEMA ADULT 1 EA BTL PR ONE (14:15)
[2019-12-06 14:27] LABS: BASOPHILS # (AUTO) 0.1 10^3/uL (0.0-0.1); BASOPHILS % (AUTO) 1 % (0-10); EOSINOPHILS # (AUTO) 0.3 10^3/uL (0.0-0.3); EOSINOPHILS % (AUTO) 2 % (0-10); HEMATOCRIT 33 % (35-52); HEMOGLOBIN 11.4 G/DL (11.5-16.0); LYMPHOCYTES # (AUTO) 3.3 X 10^3 (1.0-4.0); LYMPHOCYTES % (AUTO) 27 % (12-44); MEAN CORPUSCULAR HEMOGLOBIN 35 PG (25-34); MEAN CORPUSCULAR HGB CONC 34 G/DL (32-36); MEAN CORPUSCULAR VOLUME 102 FL (80-99); MEAN PLATELET VOLUME 10.2 FL (7.4-10.4); MONOCYTES # (AUTO) 1.2 X 10^3 (0.0-1.0); MONOCYTES % (AUTO) 9 % (0-12); NEUTROPHILS # (AUTO) 7.5 X 10^3 (1.8-7.8); NEUTROPHILS % (AUTO) 61 % (42-75); PLATELET COUNT 350 10^3/uL (130-400); RED CELL DISTRIBUTION WIDTH 18.9 % (10.0-14.5); WHITE BLOOD COUNT 12.3 10^3/uL (4.3-11.0)
[2019-12-06] MEDS ORDERED: ACETAMINOPHEN 325 MG TABLET PO ONE (14:30)
[2019-12-06] MEDS ORDERED: IBUPROFEN TABLET 200 MG TAB PO ONE (14:30)
[2019-12-06 14:45] LABS: CREATININE SERUM 1.11 MG/DL (0.60-1.30); POTASSIUM 4.2 MMOL/L (3.6-5.0)
--- NOTE | 2019-12-06 14:51 | Diagnostic Imaging Report ---
INDICATION: Abdominal pain, history of rectal blockage. Abdominal series performed with a frontal chest radiograph and supine and upright abdominal films. Single view of the chest also performed demonstrates no focal infiltrate, pneumothorax, or pleural fluid. There is no free intraperitoneal air. Abdominal bowel gas pattern shows no overt obstruction or ileus. There is moderate stool throughout the colon. There are calcifications over the right upper quadrant, which are likely gallstones. IMPRESSION: No sign of free air or bowel obstruction. Right upper quadrant calcifications are present which are probably gallstones, correlate with sonography if there is symptomatology in this location. Dictated by: Dictated on workstation # [id number]
[2019-12-06 15:05] LABS: SMEAR SCAN COMMENT YES
[2019-12-06] MEDS ORDERED: LIDOCAINE UROJET 2% GEL 10 ML PKG TOP ONE (15:45)
[2019-12-06] MEDS ORDERED: MAGNESIUM CITRATE 300 ML BTL PO ONE (16:00)
[2019-12-06] MEDS ORDERED: POLY17PO6 PO (17:15)
[2019-12-06 18:00] VITALS: BP 120/82
== END 2019-12-06 18:00 | disposition home or self-care (01) ==
LOC: EDUNIT# 12:00 → ER 12:01
DX: K59.00 Constipation, unspecified (principal); F03.90 Unspecified dementia, unspecified severity, without behavioral disturbance, psychotic disturbance, mood disturbance, and anxiety; K21.9 Gastro-esophageal reflux disease without esophagitis; F32.9 Major depressive disorder, single episode, unspecified; E03.9 Hypothyroidism, unspecified; Z96.652 Presence of left artificial knee joint; Z88.1 Allergy status to other antibiotic agents; Z87.891 Personal history of nicotine dependence; Z90.710 Acquired absence of both cervix and uterus; Z90.89 Acquired absence of other organs
CPT/HCPCS: 36415; 74022; 80048; 85025

== ENCOUNTER 2019-12-29 10:54 | Inpatient (IN) | payer MEDICARE, OTHER ==
[~2019-12-29] VITALS: Ht 152 cm; Wt 46.8 kg
[~2019-12-29 10:54] MED LIST changes: +POLY17PO6 PO
[2019-12-29] MEDS ORDERED: IOHEXOL 350 MG/ML 100 ML (OMNIPAQUE 350) VIAL IV ONE ×2 (11:15→11:30)
[2019-12-29] MEDS ORDERED: HOLD METFORMIN - RECEIVED CONTRAST 20 ML VIAL IV SCH ×2 (11:15→11:30)
[2019-12-29] MEDS ORDERED: NS 100 ML (IVPB) BAG IV ONE ×2 (11:15→11:30)
--- NOTE | 2019-12-29 11:16 | ED Neurological Problem ---
General Chief Complaint: Neuro-Stroke Like Symptoms Stated Complaint: STROKE SYMPTOMS Nursing Triage Note: ARRIVED [facility]IA [facility] FROM HOME. PT HAD TROUBLE SPEAKING AT APPX 1000 THIS AM. EMS REPORTS PT NOT BEING ABLE TO TALK BUT NO OTHER DEFICITS. UPON PT ARRIVAL PT TALKING WITHOUT DIFFICULTY. A/0 X3 Nursing Sepsis Screen: No Definite Risk Source: patient, EMS Exam Limitations: no limitations History of Present Illness Date Seen by Provider: Dec 29, 2019 Time Seen by Provider: 10:54 Initial Comments The patient presents to the ER by EMS from home where she lives with her independently and is usually ambulatory and fully verbal. She has chief complaint that she was sleeping in until about 10:00 this morning and then she got up called out to her family loudly and when they went to check on her she was unable to speak. She's not having any weakness or numbness or pain. EMS reports she had equal strength in all 4 extremities but could not answer questions. EMS was familiar with the patient and says that at baseline she is able to have normal conversations. She doesn't history of being ran for UTIs. Patient denies dysuria cough shortness of breath. She is able to answer questions and is oriented to person and place as well as situation. She denies any pain fever chills nausea or diarrhea. She denies a history of coronary disease or stroke. She denies a history of smoking but had a past history of smoking. Last known well time per family was 1000. After the arrives he gives further history that for the past 6 months she has not been taking any of the medications prescribed to her. She has frequent, chronic pain in her bladder and is had a bladder sling by Dr. Suarez in the past. She has frequent bladder infections. He gives her Tylenol, Advil and occasionally tramadol with the last dose being half a tablet last night before bedtime. No history of stroke seizure heart attack. Presently she is not taking any routine medications. Allergies and Home Medications Allergies Coded Allergies: cefdinir (Verified Allergy, Mild, RASH, 07/26/17) Home Medications Acetaminophen 500 Mg Tablet, 1,000 MG PO TID Prescribed by: KRYSTA COX on 10/01/13 1127 Bisacodyl 10 Mg Supp, 10 MG MD DAILY PRN for CONSTIPATION Prescribed by: KRYSTA COX on 10/01/13 1127 Cefdinir 300 Mg Capsule, 300 MG PO TWICE A DAY Prescribed by: SERGEI ROACH on 07/24/17 1635 Esomeprazole Mag Trihydrate 40 Mg Capsule.dr, 1 CAP PO DAILY, (Reported) Hydrocodone/Acetaminophen 1 Each Tablet, 1 EACH PO 4 times a day Prescribed by: SERGEI ROACH on 07/24/17 1635 Ibuprofen 600 Mg Tablet, 600 MG PO Q6H PRN for PAIN Prescribed by: THIAGO SMITH on 07/19/16 0149 Levothyroxine Sodium 75 Mcg Tablet, 75 MCG PO DAILY@0630 Prescribed by: KRYSTA COX on 10/01/13 1127 Mirabegron 25 Mg Tab.er.24h, 25 MG PO DAILY, (Reported) Paroxetine Hcl 40 Mg Tablet, 40 MG PO DAILY, (Reported) Polyethylene Glycol 3350 17 Gm Powd.pack, 17 GM PO BID Prescribed by: SHELBY SCOTT on 12/06/19 1715 Senna 1 Ea Tablet, 1 EA PO BID Prescribed by: KRYSTA COX on 10/01/13 1127 Trazodone Hcl 50 Mg Tablet, 50 MG PO HS Prescribed by: KRYSTA COX on 10/01/13 1127 Trimethoprim 100 Mg Tablet, 100 MG PO HS, (Reported) Patient Home Medication List Home Medication List Reviewed: Yes Review of Systems Review of Systems Constitutional: No chills, No diaphoresis, No fever Eyes: Denies Blindness, Denies Drainage Ears, Nose, Mouth, Throat: denies ear pain, denies ear discharge Respiratory: No cough, No short of breath Cardiovascular: No chest pain, No edema Gastrointestinal: No abdominal pain, No nausea, No vomiting Genitourinary: No discharge, No dysuria, No frequency : No Musculoskeletal: No back pain, No joint pain Skin: No pruritus, No rash Psychiatric/Neurological: See HPI; Denies Headache, Denies Numbness, Denies [place] Seizures, Denies Tonic Clonic Seizures, Denies Weakness Endocrine: Denies Excessive Sweating, Denies Flushing Past Mqcfxma-Dzoauh-Rzzwyp Hx Patient Social History Alcohol Use: Denies Use Recreational Drug Use: No Smoking Status: Former Smoker Type Used: Cigarettes Former Smoker, Quit: Jul 11, 1982 2nd Hand Smoke Exposure: No Recent Foreign Travel: No Contact w/Someone Who Travel: No Recent Infectious Disease Expo: No Recent Hopitalizations: No Immunizations Up To Date Tetanus Booster (TDap): Unknown Date of Pneumonia Vaccine: Sep 10, 2008 Date of Influenza Vaccine: Aug 10, 2013 Seasonal Allergies Seasonal Allergies: No Past Medical History Surgeries: Yes (BLADDER TIE UP, mastectomy x2, l knee) Bladder Surgery, Breast, Hysterectomy, Orthopedic, Tonsillectomy Respiratory: No Chronic Bronchitis Currently Using CPAP: No Currently Using BIPAP: No Cardiac: No Neurological: Yes (PERIPHERHAL NEUROPATHY) Dementia, Neuropathy Reproductive Disorders: No Female Reproductive Disorders: Denies 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 Sexually Transmitted Disease: No HIV/AIDS: No UTI-Chronic Gastrointestinal: Yes Gastroesophageal Reflux Musculoskeletal: Yes (LEFT KNEE REPLACEMENT; L1 BURST FRACTURE 2012) Osteoporosis, Arthritis, Fibromyalgia, Back Injury, Scoliosis Endocrine: Yes Hypothyroidsim Cancer: No Psychosocial: Yes Depression 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 8.0oz. 54.517380jd; 20.00 BMI Method:Stated General Appearance: WD/WN, no apparent distress HEENT: PERRL/EOMI, normal ENT inspection, TMs normal, pharynx normal Neck: non-tender, full range of motion, supple, normal inspection Respiratory: lungs clear, normal breath sounds, no respiratory distress, no accessory muscle use Cardiovascular: normal peripheral pulses, regular rate, rhythm, no edema, no murmur Peripheral Pulses: 2+ Dorsalis Pedis (R), 2+ Left Dors-Pedis (L), 2+ Radial Pulses (R), 2+ Radial Pulses (L) Gastrointestinal: normal bowel sounds, non tender, soft Extremities: normal range of motion, non-tender, normal inspection, no pedal edema, normal capillary refill Neurologic/Psychiatric: 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 librarian II-XII nml as tested, no motor/sensory deficits, alert, normal mood/affect, oriented x 3, other (the patient is not verbose but she answers questions appropriately and is maybe a little halting and sparing with her speech) Crainal Nerves: normal hearing, normal speech, PERRL Motor/Sensory: no motor deficit, no sensory deficit, no pronator drift Skin: normal color, warm/dry Stroke Onset of Symptoms Date of Onset of Symptoms: Dec 29, 2019 Time of Symptom Onset: 10:00 Onset of Symptoms: Yes Symptoms onset unknown: No NIH Stroke Scale Assessment Select: Initial Level of Consciousness: 0=Alert (0), Level of Consciousness- Questions: 0=Answers both month/age (0), LOC Commands: 0=Performs both tasks (0), Gaze: Normal (0), Visual Haney: 0=No visual loss (0), Facial Movement (Facial Paresis): 0=Normal symmetrical mnt (0), Motor Function-Arms Right: 0=No drift (0), Motor Function-Arms Left: 0=No drift (0), Motor Function-Legs Right: 0=No drift (0), Motor Function-Legs Left: 0=No drift (0), Limb Ataxia: 0=Absent (0), Sensory: 0=Normal:no loss (0), Best Language: 1=Mild to moderat aphasia (1), Dysarthria: 0=Normal (0), Extinction & Inattention: 0=No abnormality (0), Total: 1 Focused Exam Sepsis Stage: Ruled Out Reason for ruling out sepsis: not enough criteria Possible Source: Pulmonary Progress/Results/Core Measures Results/Orders Lab Results Laboratory Tests Test 12/29/19 10:46 12/29/19 10:58 12/29/19 11:25 Range/Units White Blood Count 11.4 H 4.3-11.0 10^3/uL Red Blood Count 3.27 L 4.35-5.85 10^6/uL Hemoglobin 11.5 11.5-16.0 G/DL Hematocrit 34 L 35-52 % Mean Corpuscular Volume 103 H 80-99 FL Mean Corpuscular Hemoglobin 35 H 25-34 PG Mean Corpuscular Hemoglobin Concent 34 32-36 G/DL Red Cell Distribution Width 19.4 H 10.0-14.5 % Platelet Count 264 130-400 10^3/uL Mean Platelet Volume 11.2 H 7.4-10.4 FL Neutrophils (%) (Auto) 61 42-75 % Lymphocytes (%) (Auto) 25 12-44 % Monocytes (%) (Auto) 10 0-12 % Eosinophils (%) (Auto) 4 0-10 % Basophils (%) (Auto) 0 0-10 % Neutrophils # (Auto) 6.9 1.8-7.8 X 10^3 Lymphocytes # (Auto) 2.9 1.0-4.0 X 10^3 Monocytes # (Auto) 1.1 H 0.0-1.0 X 10^3 Eosinophils # (Auto) 0.5 H 0.0-0.3 10^3/uL Basophils # (Auto) 0.1 0.0-0.1 10^3/uL Prothrombin Time 14.4 12.2-14.7 SEC INR Comment 1.1 0.8-1.4 Activated Partial Thromboplast Time 22 L 24-35 SEC D-Dimer 0.37 0.00-0.49 UG/ML Sodium Level 136 135-145 MMOL/L Potassium Level 5.0 3.6-5.0 MMOL/L Chloride Level 103 98-107 MMOL/L Carbon Dioxide Level 21 21-32 MMOL/L Anion Gap 12 5-14 MMOL/L Blood Urea Nitrogen 23 H 7-18 MG/DL Creatinine 1.08 0.60-1.30 MG/DL Estimat Glomerular Filtration Rate 48 BUN/Creatinine Ratio 21 Glucose Level 104 70-105 MG/DL Calcium Level 9.1 8.5-10.1 MG/DL Corrected Calcium 9.3 8.5-10.1 MG/DL Total Bilirubin 0.7 0.1-1.0 MG/DL Aspartate Amino Transf (AST/SGOT) 32 5-34 U/L Alanine Aminotransferase (ALT/SGPT) 18 0-55 U/L Alkaline Phosphatase 77 40-136 U/L Troponin I < 0.028 <0.028 NG/ML Total Protein 7.9 6.4-8.2 GM/DL Albumin 3.8 3.2-4.5 GM/DL Smear Scan YES Glucometer 103 70-110 MG/DL Urine Color YELLOW Urine Clarity CLOUDY Urine pH 6.0 5-9 Urine Specific [place] 1.015 L 1.016-1.022 Urine Protein 2+ H NEGATIVE Urine Glucose (UA) NEGATIVE NEGATIVE Urine Ketones NEGATIVE NEGATIVE Urine Nitrite POSITIVE H NEGATIVE Urine Bilirubin NEGATIVE NEGATIVE Urine Urobilinogen 0.2 < = 1.0 MG/DL Urine Leukocyte Esterase 2+ H NEGATIVE Urine RBC (Auto) 3+ H NEGATIVE Urine RBC 50-100 H /HPF Urine WBC TNTC H /HPF Urine Crystals NONE /LPF Urine Bacteria MODERATE H /HPF Urine Casts NONE /LPF Urine Mucus NEGATIVE /LPF Urine Culture Indicated YES My Orders Orders - PIERRE BROWN Cbc With Automated Diff (12/29/19 11:00) Protime With Inr (12/29/19 11:00) Partial Thromboplastin Time (12/29/19 11:00) Comprehensive Metabolic Panel (12/29/19 11:00) Fibrin Degradation Products (12/29/19 11:00) Troponin I (12/29/19 11:00) Ua Culture If Indicated (12/29/19 11:00) Chest 1 View, Ap/Pa Only (12/29/19 11:00) Catheter(Urinary) Insert & Ass 03,15 (12/29/19 11:00) Ekg Tracing (12/29/19 11:00) Nothing By Mouth (12/29/19 Dinner) Accucheck Stat ONCE (12/29/19 11:00) Ed Iv/Invasive Line Start (12/29/19 11:00) Ed Iv/Invasive Line Start (12/29/19 11:00) Vital Signs Stroke Patient Q15M (12/29/19 11:00) Ct Head Wo-R/O Stroke (12/29/19 11:00) O2 (12/29/19 11:00) Intake & Output 06,14,22 (12/29/19 11:00) Monitor-Rhythm Ecg Trace Only (12/29/19 11:00) Dysphagia Screening Tool (12/29/19 11:00) Lipid Panel (12/30/19 06:00) Ct Angio Head/Neck (12/29/19 11:00) Iohexol Injection (Omnipaque 350 Mg/Ml 1 (12/29/19 11:15) Received Contrast (Hold Metformin- Contr (12/29/19 11:15) Ns (Ivpb) (Sodium Chloride 0.9% Ivpb Bag (12/29/19 11:15) Received Contrast (Hold Metformin- Contr (12/29/19 11:30) Urine Culture (12/29/19 11:25) Fentanyl Injection (Sublimaze Injection (12/29/19 12:15) Ciprofloxacin Iv 400mg/200ml (Cipro Iv S (12/29/19 12:15) Medications Given in ED Current Medications Medications Dose Ordered Sig/René Route Start Time Stop Time Status Last Admin Dose Admin Ciprofloxacin/ Dextrose 200 ml @ 200 mls/hr ONCE ONCE IV 12/29/19 12:15 12/29/19 13:14 12/29/19 12:21 200 MLS/HR Fentanyl Citrate 25 mcg ONCE ONCE IVP 12/29/19 12:15 12/29/19 12:16 DC 12/29/19 12:16 25 MCG Iohexol 75 ml ONCE ONCE IV 12/29/19 11:15 12/29/19 11:16 DC 12/29/19 11:21 75 ML Sodium Chloride 100 ml ONCE ONCE IV 12/29/19 11:15 12/29/19 11:16 DC 12/29/19 11:21 80 ML Vital Signs/I&O 12/29/19 10:54 Temp 36.9 Pulse 88 Resp 16 B/P (MAP) 110/54 (72) Pulse Ox 97 O2 Delivery Room Air Blood Pressure Mean: 72 Progress Progress Note #1: Time: 11:29 Progress Note She is not diabetic but her blood sugar is normal per EMS. CT of the head and CT angiogram. Perhaps she had a seizure and she was postictal? Infection is also possible so we'll obtain urine and lab. Progress Note #2: Time: 12:07 Progress Note The patient appears to be back to baseline per family. NIH be 0 point this time. We will not be pursuing TPA but we will pursue a TIA workup. She is having pain in her bladder which is chronic for her several start with 25 g of fentanyl IV. Initial ECG Impression Date: Dec 29, 2019 Initial ECG Impression Time: 11:00 Initial ECG Rate: 84 Initial ECG Intervals: QT (459) Initial ECG Impression: Nonspecific Changes Comment Accelerated junctional rhythm without significant ST elevation or depression. Diagnostic Imaging Diagonstic Imaging: Xray Plain Films/CT/US/NM/MRI: chest (1v) Comments NAME: JEREMY CANALES MED REC#: [id number] PT STATUS: REG ER : 1930 PHYSICIAN: PIERRE BROWN MD ADMIT DATE: 12/29/19/ER Signed Date of Exam:12/29/19 CHEST 1 VIEW, AP/PA ONLY Indication: Respiratory infection Portable chest 12:19 PM Heart size and pulmonary vascularity are normal. Lungs are clear. There are no effusions or pneumothoraces. IMPRESSION: Negative chest Dictated by: Dictated on workstation # [id number] Dict: 12/29/19 1227 Trans: 12/29/19 1228 TB [id number] Interpreted by: DAVID ALDANA MD Electronically signed by: DAVID ALDANA MD 12/29/198 Reviewed: Reviewed by Me Diagonstic Imaging: CT Plain Films/CT/US/NM/MRI: head Comments [facility] [place] NAME: JEREMY CANALES [facility] REC#: [id number] PT STATUS: REG ER : 1930 PHYSICIAN: PIERRE BROWN MD ADMIT DATE: 12/29/19/ER Draft Date of Exam:12/29/19 CT HEAD WO-R/O STROKE PROCEDURE: CT head wo r/o stroke. TECHNIQUE: Multiple contiguous axial images were obtained through the brain without the use of intravenous contrast. Auto Exposure Controls were utilized during the CT exam to meet ALARA standards for radiation dose reduction. INDICATION: Altered mental status and aphasia. COMPARISON: Comparison made with prior examination from 09/16/2013. FINDINGS: There is prominence of the ventricles and sulci. There is no hydrocephalus or cerebral edema. There is no midline shift or mass-effect. There is no intracranial mass, hemorrhage, or extra-axial fluid collection. There is some diffuse decreased attenuation of the periventricular white matter which is nonspecific. The visualized paranasal sinuses and mastoid air cells are clear. There are no regional areas of decreased attenuation appreciated to suggest an acute CVA. IMPRESSION: 1. No acute intracranial process. 2. Age-appropriate atrophy. 3. Decreased attenuation of the periventricular white matter which is nonspecific, however, likely reflects senescent change and/or chronic small vessel ischemic disease. If there is high clinical concern for an acute CVA, further evaluation with MRI should be considered. Dictated on workstation # [id number] Dict: 12/29/19 1116 Trans: 12/29/19 1117 [id number] Interpreted by: SUSIE REESE MD Electronically signed by: Reviewed: Reviewed by Me Diagonstic Imaging: CT (angiogram) Plain Films/CT/US/NM/MRI: head (head and neck) Comments NAME: JEREMY CANALES [facility] REC#: [id number] PT STATUS: REG ER : 1930 PHYSICIAN: PIERRE BROWN MD ADMIT DATE: 12/29/19/ER Draft Date of Exam:12/29/19 CT ANGIO HEAD/NECK PROCEDURE: CT angiography of the head and CT angiography of the neck with and without contrast. TECHNIQUE: Contiguous noncontrast images were obtained from the skull base through the vertex. After intravenous contrast administration, helical CT angiography of the neck was performed. Source data was reformatted into 3D MIP projections. Delayed post contrast acquisition was also obtained. Auto Exposure Controls were utilized during the CT exam to meet ALARA standards for radiation dose reduction. INDICATION: Cerebrovascular accident. FINDINGS: Origins of the great vessels are not included on this study. Common carotid arteries are widely patent. There is, however, moderate atherosclerotic plaque at the origins of the internal carotid arteries, bilaterally. This does result in approximately 50% stenoses. Otherwise, the internal carotid arteries are tortuous but patent throughout the neck and to the skull base. There is left vertebral arterial dominance. There is focal stenosis or possible occlusion at the origin of the right vertebral artery. Otherwise vertebral arteries are patent through the neck. Distal right vertebral artery is very small but appears to be patent. Basilar artery has a normal appearance. Within the head, there is normal opacification of anterior, middle and posterior cerebral arteries. There is no evidence of aneurysm or vascular malformation. No filling defect, stenosis or occlusion is detected. There is no abnormal contrast enhancement. IMPRESSION: Stenosis or possible occlusion at the origin of right vertebral artery. There is a dominant left vertebral artery and normal opacification of basilar artery and posterior cerebral arteries. Otherwise, atherosclerotic disease results in approximately 50% stenosis at the origins of both internal carotid arteries. Otherwise no filling defect, stenosis or occlusion is identified. Dictated on workstation # [id number] Dict: 12/29/19 1127 Trans: 12/29/19 1142 [id number] Interpreted by: RADHA SANCHEZ MD Electronically signed by: Reviewed: Reviewed by Me Consults : Consults Notes 1145: Discussed the case with Dr. Frances, [facility] stroke neurologist and he agrees with not doing TPA however he would still do an ischemic stroke workup. He thinks seizure would be far lower on his differential. Departure Communication (Admissions) Time/Spoke to Admitting Phy: 12:56 Discuss the case with Dr. Bradley, internal medicine and he agrees to observe the patient do a TIA workup on the floor with telemetry and give ciprofloxacin based on previous micro specimens. Patient is not septic and has a stated allergy to Omnicef. DO NOT RESUSCITATE. Impression Primary Impression: UTI (urinary tract infection) Qualified Codes: N30.01 - Acute cystitis with hematuria Additional Impressions: Encephalopathy acute TIA (transient ischemic attack) Disposition: ADMITTED INPATIENT Condition: Stable Admissions Decision to Admit Reason: Admit from ER (General) Decision to Admit/Date: Dec 29, 2019 Time/Decision to Admit Time: 12:00 Departure-Patient Inst. Referrals: RAFAELA TODD MD (PCP/Family) Primary Care Physician PIERRE BROWN Dec 29, 2019 11:16
[2019-12-29 11:17] LABS: BASOPHILS # (AUTO) 0.1 10^3/uL (0.0-0.1); BASOPHILS % (AUTO) 0 % (0-10); EOSINOPHILS # (AUTO) 0.5 10^3/uL (0.0-0.3); EOSINOPHILS % (AUTO) 4 % (0-10); HEMATOCRIT 34 % (35-52); HEMOGLOBIN 11.5 G/DL (11.5-16.0); LYMPHOCYTES # (AUTO) 2.9 X 10^3 (1.0-4.0); LYMPHOCYTES % (AUTO) 25 % (12-44); MEAN CORPUSCULAR HEMOGLOBIN 35 PG (25-34); MEAN CORPUSCULAR HGB CONC 34 G/DL (32-36); MEAN CORPUSCULAR VOLUME 103 FL (80-99); MEAN PLATELET VOLUME 11.2 FL (7.4-10.4); MONOCYTES # (AUTO) 1.1 X 10^3 (0.0-1.0); MONOCYTES % (AUTO) 10 % (0-12); NEUTROPHILS # (AUTO) 6.9 X 10^3 (1.8-7.8); NEUTROPHILS % (AUTO) 61 % (42-75); PLATELET COUNT 264 10^3/uL (130-400); RED CELL DISTRIBUTION WIDTH 19.4 % (10.0-14.5); WHITE BLOOD COUNT 11.4 10^3/uL (4.3-11.0)
[2019-12-29 11:19] LABS: SMEAR SCAN COMMENT YES
[2019-12-29 11:32] LABS: ALANINE AMINOTRANSFERASE 18 U/L (0-55); ALBUMIN 3.8 GM/DL (3.2-4.5); ALKALINE PHOSPHATASE 77 U/L (40-136); BILIRUBIN,TOTAL 0.7 MG/DL (0.1-1.0); BUN/CREATININE RATIO 21; CALCIUM 9.1 MG/DL (8.5-10.1); CARBON DIOXIDE 21 MMOL/L (21-32); CHLORIDE 103 MMOL/L (98-107); CREATININE SERUM 1.08 MG/DL (0.60-1.30); GFR ESTIMATED 48; GLUCOSE 104 MG/DL (70-105); SODIUM 136 MMOL/L (135-145); TOTAL PROTEIN 7.9 GM/DL (6.4-8.2)
[2019-12-29 11:37] LABS: FIBRIN DEGRADATION PRODUCTS 0.37 UG/ML (0.00-0.49); INR 1.1 (0.8-1.4); PROTHROMBIN TIME PATIENT 14.4 SEC (12.2-14.7)
--- NOTE | 2019-12-29 11:42 | Diagnostic Imaging Report ---
PROCEDURE: CT angiography of the head and CT angiography of the neck with and without contrast. TECHNIQUE: Contiguous noncontrast images were obtained from the skull base through the vertex. After intravenous contrast administration, helical CT angiography of the neck was performed. Source data was reformatted into 3D MIP projections. Delayed post contrast acquisition was also obtained. Auto Exposure Controls were utilized during the CT exam to meet ALARA standards for radiation dose reduction. INDICATION: Cerebrovascular accident. FINDINGS: Origins of the great vessels are not included on this study. Common carotid arteries are widely patent. There is, however, moderate atherosclerotic plaque at the origins of the internal carotid arteries, bilaterally. This does result in approximately 50% stenoses. Otherwise, the internal carotid arteries are tortuous but patent throughout the neck and to the skull base. There is left vertebral arterial dominance. There is focal stenosis or possible occlusion at the origin of the right vertebral artery. Otherwise vertebral arteries are patent through the neck. Distal right vertebral artery is very small but appears to be patent. Basilar artery has a normal appearance. Within the head, there is normal opacification of anterior, middle and posterior cerebral arteries. There is no evidence of aneurysm or vascular malformation. No filling defect, stenosis or occlusion is detected. There is no abnormal contrast enhancement. IMPRESSION: Stenosis or possible occlusion at the origin of right vertebral artery. There is a dominant left vertebral artery and normal opacification of basilar artery and posterior cerebral arteries. Otherwise, atherosclerotic disease results in approximately 50% stenosis at the origins of both internal carotid arteries. Otherwise no filling defect, stenosis or occlusion is identified. Dictated by: Dictated on workstation # [id number]
[2019-12-29 12:07] LABS: BACTERIA,URINE MODERATE /HPF; BILIRUBIN,URINE NEGATIVE (NEGATIVE); CLARITY,URINE CLOUDY; COLOR,URINE YELLOW; GLUCOSE, URINE (UA) NEGATIVE (NEGATIVE); KETONES,URINE NEGATIVE (NEGATIVE); LEUKOCYTE ESTERASE ,URINE 2+ (NEGATIVE); NITRITE,URINE POSITIVE (NEGATIVE); PROTEIN,URINE 2+ (NEGATIVE); RBC,URINE 50-100 /HPF; WBC,URINE TNTC /HPF
[2019-12-29] MEDS ORDERED: CIPROFLOXACIN IV 400MG/200ML 200 ML IV ONE (12:15)
[2019-12-29] MEDS ORDERED: fentaNYL INJECTION 100 MCG/2 ML AMP IVP ONE (12:15)
--- NOTE | 2019-12-29 12:29 | Diagnostic Imaging Report ---
Indication: Respiratory infection Portable chest 12:19 PM Heart size and pulmonary vascularity are normal. Lungs are clear. There are no effusions or pneumothoraces. IMPRESSION: Negative chest Dictated by: Dictated on workstation # [id number]
[2019-12-29] MEDS ORDERED: ACETAMINOPHEN 325 MG TABLET PO PRN ×2 (14:00→20:30)
[2019-12-29] MEDS ORDERED: CATHETER FLUSH 10 ML SYR IV PRN (14:00)
[2019-12-29] MEDS ORDERED: ACETAMINOPHEN 500 MG TAB (TYLENOL) PO PRN (14:00)
[2019-12-29] MEDS ORDERED: MILK OF MAGNESIA 400 MG/5 ML 30 ML UDC PO PRN (14:00)
[2019-12-29 14:44] VITALS: BP 138/63
--- NOTE | 2019-12-29 14:48 | Occ Therapy Progress Note ---
Therapy Progress Note OT order received, chart reviewed. Pt. came to ER this a.m. with stroke like symptoms. Pt. transferred to 4th floor medical. Pt. undergoing nursing assessment and pt/family interview. Attempted x 2 and will attempt back as time allows. Otherwise, will allow pt. to rest and will begin in a.m. 1410, 1430 1,1,visit TOMAS CHOWDHURY OT Dec 29, 2019 14:48
--- NOTE | 2019-12-29 15:00 | NUR ---
JEREMY CANALES admitted to room 419-1, with an admitting diagnosis of UTI, on 12/29/19 from ER, accompanied by .JEREMY CANALES introduced to surroundings, call light, bed controls, phone, TV, temperature control, lights, meal times, smoking policy, visitor policy, side rail policy, bathrooms and showers. Patient Rights given to patient in the handbook. JEREMY CANALES verbalizes understanding that [facility] is not responsible for the loss or damage to any personal effects or valuables that are kept in the patients posession during their hospitalization. The following Patient Care Plans were discussed with the PATIENT AND : Discharge Planning, INFECTION CONROL,NUTRION, and TELEMONITORING. JEREMY CANALES verbalizes understanding of Interdisciplinary Patient Education.
--- NOTE | 2019-12-29 15:17 | Physical Therapy Progress Note ---
Therapy Progress Note Pt has recently arrived to her room from ER. Requested to rest this afternoon and initiate PT tomorrow. MAYRA MCKEON PT Dec 29, 2019 15:17
[2019-12-29] MEDS: NS IV 1000 ML 1,000 ML IV SCH (15:40)
[2019-12-29] MEDS ORDERED: ACET325T38 PO (15:40)
[2019-12-29] MEDS ORDERED: IBUP-2473 PO (15:41)
[2019-12-29] MEDS ORDERED: TRAM50TA3 PO (15:42)
--- NOTE | 2019-12-29 15:42 | NUR ---
SPOKE WITH PT'S WELL GOING THRU THE EXT MED HISTORY TO COMPLETE THE MED REC PT'S (SHENG) TOLD ME THAT SHE HASNT TAKEN ANY OF HER MEDS IN 6-8 MONTHS. HE INDICATED THAT THEY USE [facility] ORDER [facility] AND THEY KEEP SENDING THEM BUT PT WONT TAKE THEM. THE ONLY THING HE CAN GET HER TO TAKE IT TYLENOL, ADVIL OR TRAMADOL. I TOOK EVERYTHING OFF THE MED REC EXCEPT THOSE 3 MEDICATIONS.
[2019-12-29 16:00] VITALS: BP 124/55
[2019-12-29 19:49] VITALS: BP 129/75
[2019-12-29] MEDS ORDERED: IBUPROFEN TABLET 200 MG TAB PO PRN (20:30)
[2019-12-29] MEDS: DOCUSATE SODIUM 100 MG (COLACE) CAP PO SCH (20:40)
[2019-12-30] VITALS (7 sets, daily range): BP systolic 111–180; BP diastolic 57–77
[2019-12-30] MEDS: NS IV 1000 ML 1,000 ML IV SCH ×3 (01:29→20:00)
[2019-12-30 06:07] LABS: BASOPHILS % (AUTO) 0 % (0-10); EOSINOPHILS # (AUTO) 0.5 10^3/uL (0.0-0.3); EOSINOPHILS % (AUTO) 5 % (0-10); HEMATOCRIT 30 % (35-52); HEMOGLOBIN 10.3 G/DL (11.5-16.0); LYMPHOCYTES % (AUTO) 34 % (12-44); MEAN CORPUSCULAR HEMOGLOBIN 35 PG (25-34); MEAN CORPUSCULAR HGB CONC 34 G/DL (32-36); MEAN CORPUSCULAR VOLUME 103 FL (80-99); MEAN PLATELET VOLUME 10.4 FL (7.4-10.4); MONOCYTES # (AUTO) 1.1 X 10^3 (0.0-1.0); MONOCYTES % (AUTO) 12 % (0-12); NEUTROPHILS # (AUTO) 4.2 X 10^3 (1.8-7.8); NEUTROPHILS % (AUTO) 48 % (42-75); PLATELET COUNT 321 10^3/uL (130-400); RED CELL DISTRIBUTION WIDTH 19.4 % (10.0-14.5); WHITE BLOOD COUNT 8.9 10^3/uL (4.3-11.0)
[2019-12-30 06:44] LABS: ALANINE AMINOTRANSFERASE 13 U/L (0-55); ALBUMIN 3.4 GM/DL (3.2-4.5); ALKALINE PHOSPHATASE 68 U/L (40-136); BILIRUBIN,TOTAL 0.6 MG/DL (0.1-1.0); BUN/CREATININE RATIO 24; CALCIUM 8.3 MG/DL (8.5-10.1); CARBON DIOXIDE 22 MMOL/L (21-32); CHLORIDE 106 MMOL/L (98-107); CHOLESTEROL 131 MG/DL (< 200); GFR ESTIMATED > 60; GLUCOSE 95 MG/DL (70-105); HDL CHOLESTEROL 32 MG/DL (40-60); POTASSIUM 3.7 MMOL/L (3.6-5.0); SODIUM 137 MMOL/L (135-145); TOTAL PROTEIN 6.7 GM/DL (6.4-8.2); TRIGLYCERIDES 104 MG/DL (<150); VLDL CHOLESTEROL 21 MG/DL (5-40)
[2019-12-30] MEDS: ASPIRIN E.C. 325 MG (ECOTRIN) TABLET PO SCH (08:13)
[2019-12-30] MEDS: CIPROFLOXACIN 400 MG/D5W 200 ML (PRE-MIX) IV SCH (08:14)
[2019-12-30] MEDS: DOCUSATE SODIUM 100 MG (COLACE) CAP PO SCH ×2 (08:14→19:53)
--- NOTE | 2019-12-30 08:46 | Speech Therapy Progress Note ---
Therapy Progress Note Orders received for Bedside Dysphagia Evaluation. Speech Therapist is not available this date. Spoke with patient's nurse this morning and she will complete a nursing bedside swallow assessment. Will await these results. Dr. Bradley notified as well. MAYRA MCKEON PT Dec 30, 2019 08:46
[2019-12-30] MEDS ORDERED: ASPIRIN 325 MG (5 GR) TABLET PO SCH (09:00)
--- NOTE | 2019-12-30 09:20 | NUR ---
After taking Tramadol for pain, patient reports that pain is not improved. Patient stated that pain was because of her catheter at initial assessment, no noted abnormalities on focused assessment of catheter. At re-assessment, patient reports that pain is in lower abdomen. Upon assessment, patient has large, round, hard area at lower abdomen. Bowel sounds are hypoactive. Physician notified.
--- NOTE | 2019-12-30 09:29 | NUR ---
Attempted Dysphagia screen and patient became nauseated with some emesis before water challenge could begin. Will attempt again later.
[2019-12-30] MEDS: ONDANSETRON 4 MG/2 ML (SDV) Z0FRAN IV PRN (09:31)
[2019-12-30] MEDS ORDERED: polyethylene glycoL POWDER 17 GM (MIRALAX) PACK PO PRN (10:15)
--- NOTE | 2019-12-30 10:15 | Occupational Therapy Eval ---
OT Evaluation-General/PLF Medical Diagnosis Admission Date Dec 29, 2019 at 13:12 Medical Diagnosis: UTI, AMS, aphasia Onset Date: Dec 29, 2019 Therapy Diagnosis Therapy Diagnosis: Decreased ADL status Height/Weight Height (Feet): 5 Height (Inches): 4.00 Weight (Pounds): 120 Weight (Ounces): 8.0 Precautions Precautions/Isolations: Fall Prevention, Standard Precautions Referral Physician: Isatu Bradley MD Referral Reason: Activity Tolerance, Self Care, Evaluation/Treatment, Strengthening/ROM Medical History Additional Medical History chronic bronchitis, dementia, neuropathy, fibromyalgia, arthritis, osteoarthritis, scoliosis, hypothyroidism, depression, burst fx of L1 vertebral body Current History Pt woke around 1000 on 12/29/19 and was unable to speak. Pt's family brought to ER. Pt was oriented x3/ alert yesterday, able to speak and per charts pt's family states pt was at prior level yesterday. Reviewed History: Yes Social History Home: Single Level Current Living Status: Spouse Entry Into Home: Stairs With Railing (2) Steps Into Home: 2 Pt states "a couple" stairs, limited talking during session ADL-Prior Level of Function SCALE: Activities may be completed with or without assistive devices. 6-Xpbgwfgpet-cbipewy completes the activity by him/herself with no assistance from a helper. 5-Set-up or Clean-up Assistance-helper sets up or cleans up; patient completes activity. [place] assists only prior to or following the activity. 4-Supervision or Touching Assistance-helper provides verbal cues and/or touching/steadying and/or contact guard assistance as patient completes activity. Assistance may be provided throughout the activity or intermittently. 3-Partial/Moderate Assistance-helper does LESS THAN HALF the effort. [place] lifts, holds or supports trunk or limbs, but provides less than half the effort. 2-Substantial/Maximal Assistance-helper does MORE THAN HALF the effort. [place] lifts or holds trunk or limbs and provides more than half the effort. 1-Rvcmhzkax-gztnem does ALL the effort. Patient does none of the effort to complete the activity. Or, the assistance of 2 or more helpers is required for the patient to complete the activity. If activity was not attempted, code reason: 7-Patient Refused. 9-Not Applicable-not attempted and the patient did not perform the activity before the current illness, exacerbation or injury. 10-Not Attempted due to Environmental Limitations-(lack of equipment, weather restraints, etc.). 88-Not Attempted due to Medical Conditions or Safety Concerns. ADL PLOF Comments Pt states pt required assist with all ADLs from Self Care: Needed Some Help Functional Cognition: Needed Some Help (dmentia) DME/Equipment: Bath Chair, Grab Bars, Tub/Shower, Toilet/Riser DME/Equipment Comments walker, cane, shower chair, grab bars, tub/ shower. 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 Nursing present, states pt just got sick. Pt has bucket next to self with mucous in it. Pt states 5/10 pain in lower abdomen, nursing states pt has "mass" on abdomen. Pt agreeable to eval, though denies ADLs and OOB activity due to pain. Mental Status/Objective Patient Orientation: Person, Place Current Glasses/Contacts: Yes Hearing Aids: No Dentures/Partials: Yes Hand Dominance: Right Upper Extremity ROM WFL (~120* shoulder flexion), able to touch shoulders. Upper Extremity Coordination WFL- increased time needed for finger opposition Upper Extremity Sensation WFL Upper Extremity Strength Decreased bilaterally ADL-Treatment Oral Hygiene (QC): 7 Other Treatments Pt seen in bed, nursing present. pt requires encouragement to talk, utilizes fingers to give pain rating and points to painful areas. Pt states she has been feeling weaker than normal. Pt completes orientation questions, unable to determine why brought to hospital yesterday. Pt re-educated on symptoms yesterday. pt provides environment/ home hx: pt states assists with all ADLs, is able to complete "some things sometimes," depending on strength of day. Pt ROM/ MMT completed, pt educated on OT role and continuation of strengthening to return home safely. Pt educated on sitting up in chair later through the day to increase strength. Pt agrees, all needs met, call light in reach. Education OT Patient Education: Correct positioning, Rehab process Teaching Recipient: Patient Teaching Methods: Demonstration, Discussion Response to Teaching: Verbalize Understanding, Return Demonstration OT Residential Goals Residential Goals Time Frame: Jan 06, 2020 Eating (QC): 6 Oral Hygiene (QC): 6 Toileting Hygiene (QC): 3 Shower/Bathe Self (QC): 3 Upper Body Dressing (QC): 3 Lower Body Dressing (QC): 3 On/Off Footwear (QC): 3 Additional Goals: 1-Demonstrate ADL Tasks, 2-Verbalize Understanding, 3-ImproveStrength/Darrell 1=Demonstrate adherence to instructed precautions during ADL tasks. 2=Patient will verbalize/demonstrate understanding of assistive devices/modifications for ADL. 3=Patient will improve strength/tolerance for activity to enable patient to perform ADL's. OT Education/Plan Problem List/Assessment Assessment: Decreased Activ Tolerance, Decreased UE Strength, Dependent Transfers, Impaired Cognition, Impaired Funct Balance, Impaired I ADL's, Impaired Self-Care Skills Discharge Recommendations Plan/Recommendations: Continue POC Therapy Discharge Recommendati: 24 Hour Supervision, Home & Family Treatment Plan/Plan of Care Treatment,Training & Education: Yes Patient would benefit from OT for education, treatment and training to promote independence in ADL's, mobility, safety and/or upper extremity function for ADL's. Plan of Care: ADL Retraining, Caregiver Training, Functional Mobility, UE Funct Exercise/Act Treatment Duration: Jan 06, 2020 Frequency: 5 times per week Estimated Hrs Per Day: .25 hour per day Agreement: Yes Rehab Potential: Fair Time/GCodes Start Time: 09:28 Stop Time: 09:40 Total Time Billed (hr/min): 12 Billed Treatment Time 1, EVM (12) LORENA STEPHENS OTR Dec 30, 2019 10:15
--- NOTE | 2019-12-30 10:57 | History & Physical-Hospitalist ---
History of Present Illness HPI/Chief Complaint Monica Perea is an 89-year-old female who presented after having word finding difficulties at home. She reports that it came on suddenly yesterday morning. She denies any focal weakness. She denies any vision changes. She denies any fevers or chills. She denies any chest pain or shortness of breath. She does report some dysuria. She has been feeling nauseous this morning. She has no history of stroke. She lives at home with her . Source: patient Exam Limitations: no limitations Date Seen 12/30/19 Time Seen by a Provider: 09:55 Attending Physician Juanis Bradley MD PCP Eric Aguilar MD Referring Physician Date of Admission Dec 29, 2019 at 13:12 Home Medications & Allergies Home Medications Reviewed patient Home Medication Reconciliation performed by pharmacy medication reconciliations durability technician and/or nursing. Patients Allergies have been reviewed. Allergies Allergies Coded Allergies cefdinir (Verified Allergy, Mild, RASH, 07/26/17) Past Awdfyim-Ejpiod-Wsfwsd Hx Past Med/Social Hx: Reviewed Nursing Past Med/Soc Hx Patient Social History Alcohol Use: Denies Use Recreational Drug Use: No Smoking Status: Former Smoker Former Smoker, Quit: Jul 11, 1982 Type Used: Cigarettes 2nd Hand Smoke Exposure: No Physical Abuse Screen: No Sexual Abuse: No Recent Foreign Travel: No Contact w/other who traveled: No Recent Hopitalizations: No Recent Infectious Disease Expo: No Immunizations Up To Date Tetanus Booster (TDap): Unknown Date of Pneumonia Vaccine: Dec 29, 2013 Date of Influenza Vaccine: Aug 10, 2013 Seasonal Allergies Seasonal Allergies: No Past Medical History Surgeries: Bladder Surgery, Breast, Hysterectomy, Orthopedic, Tonsillectomy Currently Using CPAP: No Currently Using BIPAP: No Neurological: Dementia, Neuropathy : No Reproductive: No Sexually Transmitted Disease: No HIV/AIDS: No Female Reproductive Disorders: Denies Hysterectomy Genitourinary: UTI-Chronic Gastrointestinal: Gastroesophageal Reflux Musculoskeletal: Osteoporosis, Arthritis, Fibromyalgia, Back Injury, Scoliosis Endocrine: Hypothyroidsim Cancer: Breast Did You Recieve Any Treatments: No Psychosocial: Depression History of Blood Disorders: Yes (ANEMIA) Review of Systems Constitutional: no symptoms reported EENTM: no symptoms reported Respiratory: no symptoms reported Cardiovascular: no symptoms reported Gastrointestinal: abdominal pain, nausea Genitourinary: dysuria Musculoskeletal: no symptoms reported Skin: no symptoms reported Psychiatric/Neurological: No Symptoms Reported Physical Exam Physical Exam Vital Signs Vital Signs - First Documented 12/29/19 10:54 Temp 36.9 Pulse 88 Resp 16 B/P (MAP) 110/54 (72) Pulse Ox 97 O2 Delivery Room Air Capillary Refill : Less Than 3 SecondsLess Than 3 Seconds Height, Weight, BMI Height: 5'4.00" Weight: 120lbs. 8.0oz. [id number]; 20.25 BMI Method:Stated General Appearance: No Apparent Distress, Thin HEENT: PERRL/EOMI, Pharynx Normal Neck: Normal Inspection, Supple Respiratory: Lungs Clear, Normal Breath Sounds, No Respiratory Distress Cardiovascular: Regular Rate, Rhythm, No Edema, No Murmur Gastrointestinal: Normal Bowel Sounds, Soft, Tenderness Extremity: Normal Inspection, Non Tender, No Pedal Edema Neurologic/Psychiatric: Alert, Oriented x3, No Motor/Sensory Deficits, Normal Mood/Affect Skin: Normal Color, Warm/Dry Results Results/Procedures Labs Laboratory Tests 12/29/19 10:46 12/30/19 05:31 Patient resulted labs reviewed. Imaging: Reviewed Imaging Report Assessment/Plan Admission Diagnosis urinary tract infection Admission Status: Observation Assessment and Plan Urinary tract infection not septic UA consistent with urinary tract infection Urine culture pending Await culture results and susceptibilities Started on ciprofloxacin Aphasia Possible TIA Difficulty with word finding at home CT head without acute abnormalities CTA normal EKG with normal sinus rhythm Started on aspirin and Lipitor symptoms likely attributable to UTI debility PT/OT DVT prophylaxis: Lovenox Diagnosis/Problems Diagnosis/Problems (1) UTI (urinary tract infection) Status: Acute Qualifiers: Urinary tract infection type: acute cystitis Hematuria presence: with hematuria Qualified Codes: N30.01 - Acute cystitis with hematuria (2) Encephalopathy acute Status: Acute Clinical Quality Measures DVT/VTE Risk/Contraindication: Risk Factor Score Per Nursin RFS Level Per Nursing on Admit: 1=Low/No VTE PPX Stroke: Date of last known well: Dec 29, 2019 Time of last known well: 10:00 Symptoms onset unknown: No JUANIS BRADLEY MD Dec 30, 2019 10:57
[2019-12-30] MEDS: ENOXAPARIN 30 MG/0.3 ML (LOVENOX) SYR SC SCH (11:24)
--- NOTE | 2019-12-30 12:03 | Physical Therapy Evaluation ---
PT Evaluation-General Medical Diagnosis Admission Date Dec 29, 2019 at 13:12 Medical Diagnosis: UTI, AMS, aphasia Onset Date: Dec 29, 2019 Therapy Diagnosis Therapy Diagnosis: Debility Height/Weight Height (Feet): 5 Height (Inches): 4.00 Weight (Pounds): 120 Weight (Ounces): 8.0 Precautions Precautions/Isolations: Fall Prevention, Standard Precautions Referral Physician: Isatu Bradley MD Reason for Referral: Evaluation/Treatment Medical History Pertinent Medical History: Arthritis, Neuropathy Additional Medical History Fibromyalgia Reviewed History: Yes Social History Home: Single Level Current Living Status: Spouse Entry Into Home: Stairs With Railing (2) PT Steps Into Home: 2 Prior Prior Level of Function SCALE: Activities may be completed with or without assistive devices. 9-Ynqtqacjmw-rpgmodd completes the activity by him/herself with no assistance from a helper. 5-Set-up or Clean-up Assistance-helper sets up or cleans up; patient completes activity. [place] assists only prior to or following the activity. 4-Supervision or Touching Assistance-helper provides verbal cues and/or touching/steadying and/or contact guard assistance as patient completes activity. Assistance may be provided throughout the activity or intermittently. 3-Partial/Moderate Assistance-helper does LESS THAN HALF the effort. [place] lifts, holds or supports trunk or limbs, but provides less than half the effort. 2-Substantial/Maximal Assistance-helper does MORE THAN HALF the effort. [place] lifts or holds trunk or limbs and provides more than half the effort. 7-Hyjvurhyr-pfgmpg does ALL the effort. Patient does none of the effort to complete the activity. Or, the assistance of 2 or more helpers is required for the patient to complete the activity. If activity was not attempted, code reason: 7-Patient Refused. 9-Not Applicable-not attempted and the patient did not perform the activity before the current illness, exacerbation or injury. 10-Not Attempted due to Environmental Limitations-(lack of equipment, weather restraints, etc.). 88-Not Attempted due to Medical Conditions or Safety Concerns. Bed Mobility: 3 Transfers (B,C,W/C): 3 Gait: 3 Stairs: 3 Indoor Mobility (Ambulation): Needed Some Help Stairs: Needed Some Help Prior Devices Use: Walker helped her push walker. PT Evaluation-Current Subjective Patient is agreeable to therapy at this time but states she will need breaks to catch her breath. Objective Patient Orientation: Normal For Age Attachments: [place]clure Catheter, IV ROM/Strength ROM Lower Extremities Decreased bilateral dorsiflexion ROM and decreased bilateral knee extension Strength Lower Extremities 3+/5 grossly BLE Integumentary/Posture Integumentary See nursing notes. Bowel Incontinence: Yes Bladder Incontinence: Mcclure Cath Sensory Vision: Functional Hearing: Functional Hand Dominance: Right Sensation Right Lower Extremit: Intact Sensation Left Lower Extremity: Intact Transfers Roll Left to Right (QC): 1 Lying to Sitting/Side of Bed(Q: 1 Sit to Stand (QC): 3 Chair/Onx-ye-Oftlb Xfer(QC): 3 Gait Does the Patient Walk?: Yes Mode of Locomotion: Walk Anticipated Mode of Locomotion: Walk Walk 10 feet (QC): 3 Walk 50 ft with 2 Turns(QC): 3 Walk 150 ft (QC): 3 Distance: 150' Gait Assistive Device: FWW Comments/Gait Description Patient pushes down instead of forward on her walker. Due to this patient required assistance initially to propel walker. After repeated instruction patient was able to propel her walker IND. Wheelchair Training Does the Pt Use a Wheelchair?: No Balance Sitting Static: Fair Sitting Dynamic: Fair Standing Static: Fair Standing Dynamic: Fair Assessment/Needs Patient requires thorough instruction and cueing in order to propel her walker herself because her normally does that for her. Patient walks on her toes with knees slightly bent and is fairly steady. Patient requires frequent standing rest breaks due to fatigue. Patient will benefit from skilled services to aide in reaching her maximum LOF. Rehab Potential: Fair PT Farm Contractor Goals Farm Contractor Goals PT Custodial Goals Time Frame: Jan 06, 2020 Roll Left & Right (QC): 3 Sit to Lying (QC): 3 Lying-Sitting on Side/Bed(QC): 3 Sit to Stand (QC): 3 Chair/Fao-pz-Ipxdx Xfer(QC): 3 Does the Patient Walk: Yes Walk 10 feet (QC): 3 Walk 50ft with 2 Turns (QC): 3 Walk 150 ft (QC): 3 PT Plan Problem List Problem List: Activity Tolerance, Functional Strength, Safety, Balance, Gait, Transfer, Bed Mobility, ROM Treatment/Plan Treatment Plan: Continue Plan of Care Treatment Plan: Bed Mobility, Education, Functional Activity Darrell, Functional Strength, Gait, Safety, Therapeutic Exercise, Transfers Treatment Duration: Jan 06, 2020 Frequency: 5 times per week Estimated Hrs Per Day: .25 hour per day Safety Risks/Education Patient Education: Gait Training, Transfer Techniques Teaching Recipient: Patient Teaching Methods: Demonstration, Discussion Response to Teaching: Reinforcement Needed Time/GCodes Time In: 1040 Time Out: 1054 Total Billed Treatment Time: 14 Total Billed Treatment 1 visit EVM 14 SHABNAM SPANGLER PT Dec 30, 2019 12:03
--- NOTE | 2019-12-30 14:03 | NUR ---
"RD ASSESSMENT PMHx: dementia; chronic bronchitis; UTI-chronic; GERD; osteoporosis; hypothyroidism PT INTERACTION: Pt was awake and pleasant during consult for MST score. Note pt has dementia, per chart review. Note pt had no family present at bedside for diet history. Pt states current appetite is poor. Note PO intake of 50% x1meal, per chart review. Pt states following a regular diet at home and has no issues with chewing/swallowing food. Note pt had failed bedside swallow eval, per Abiola RN. Pt states some issues with nausea/vomiting. Pt states unsure of any issues with constipation/diarrhea, and that she is unsure of her last BM. Note pt currently on bowel regimen of colace BID, per chart review. Pt states recent 20# wt loss, but unsure of timeframe. Note recent 24# wt gain x1mon, per chart review. ABNORMAL NUTRITION-RELATED LAB VALUES LOW: HDL 32; Ca 8.3 HIGH: BUN 19 Est. kcal needs: 4436-4363 kcal | 30-35 kcal/kg Est. Pro needs: 56-66 g Pro | 1.2-1.4 g Pro/kg PES STATEMENT: Inadequate oral intake (NI-2.1) related to loss of appetite | nausea | vomiting | swallowing difficulty as evidenced by pt interview | PO intake 50% x1meal INTERVENTION: Continue with current diet order of DYS1 Pureed diet, with [place]-Thick Liquids. Due to consistency issues with supplementation and thickeners, cannot recommend a supplement at this time. Will continue to follow and reassess as pt needs, intake and status change. MONITOR/EVALUATE: PO Intake; Plan of Care; Hydration Status; Weight Status; Lab Values Makenzie Membreno, , RD, LD"
--- NOTE | 2019-12-30 15:00 | NUR ---
Patient's IV was leaking and not flushing. IV removed. Multiple attempts made to re-insert an IV. Veins blew all times. Service Architect called to look at potential IV site. Patient at this point refuses to have any IV placed. Nurses visited with patient about importance of staying hydrated. Patient still refuses. Physician notified.
--- NOTE | 2019-12-30 16:59 | NUR ---
MOM GIVEN FOR CONSTIPATION. SANDRA. WELL. TAKING SIPS OF NECATOR THICK WATER. SANDRA. WELL.
--- NOTE | 2019-12-30 17:00 | NUR ---
CM/SS visited with patient for social service consult. The patient stated that this CM/SS could visit with her for a little bit but she wanted to take a nap soon. CM/SS asked the patient how she felt it was going at home, she stated she felt like it was going okay. However, the patients was present and stated that he is the 24 hour care and is having a difficult time due to him being [id number]. The patients Jay wanted to talk to this SS out in the sims. He stated that he already talked to [facility] and has a private room reserved for her. He would like the patient to transport from the hospital straight over. CM/SS called Isidra from [facility]. She states they do have a room for her; however, the took her there for one day in the past and brought her home the next day. He has also gone back in forth with wanting a room over there. CM/SS send Isidra a referral packet. Will continue to follow. Unsure if the patient would be skilled or self-pay.
--- NOTE | 2019-12-30 17:07 | Diagnostic Imaging Report ---
PROCEDURE: MR imaging of the brain without contrast. TECHNIQUE: Multiplanar, multisequence MR imaging of the brain was performed without contrast. INDICATION: CVA, weakness. FINDINGS: The previous MRI brain exam of 09/24/2013 failed to show any sign of an acute intracranial abnormality. The CT head and CTA head and neck exam performed on 12/29/2019 also failed to show any sign of an acute abnormality. On this study, there is no abnormal signal arising from the brain on the diffusion series. There is no mass, shift to midline, or hemorrhage. The ventricles are dilated and the ventricles do seem somewhat more prominent than noted on the previous MRI brain exam. The size of the ventricles is disproportionate with the underlying cortical atrophy and this appearance could be secondary to normal pressure hydrocephalus. If further study is desired, then a nuclear medicine cisternogram would be recommended. There is no mass, shift of the midline, or hemorrhage to indicate an acute abnormality. There are areas of increased signal in the periventricular white matter bilaterally on the FLAIR series. These are similar to the prior study and may be related to encephalomalacia from microvascular ischemia. The cortical atrophy noted previously is perhaps somewhat greater than on the prior exam. The sella is not enlarged and the expected carotid flow voids are evident bilaterally. There is no acute abnormality of the orbits. The sinuses are generally clear, although left maxillary antrum is obscured by artifact. In reviewing the CT head exam, there was no sign of metal in this area and the precise etiology of the artifact is not certain. The seventh and eighth nerve complexes are unremarkable. IMPRESSION: 1. There is no evidence for an acute intracranial abnormality. In particular, there is no abnormal signal arising from the brain on the diffusion series to indicate an area of acute ischemia. 2. The ventricles are dilated and the size of the ventricles does seem disproportionate to the underlying cortical atrophy. The possibility of normal pressure hydrocephalus should be considered. Recommendations, as above. Dictated by: Dictated on workstation # [id number]
--- NOTE | 2019-12-30 19:42 | NUR ---
iv restarted in the left lower forearm 22g x1 attempt fluids restarted made aware
[2019-12-30] MEDS: SENNA W/DOCUSATE (SENOKOT S) TABLET PO SCH (19:53)
[2019-12-31 00:17] VITALS: BP 127/64
[2019-12-31 03:45] VITALS: BP 134/74
[2019-12-31] MEDS: NS IV 1000 ML 1,000 ML IV SCH (05:45)
[2019-12-31 08:00] VITALS: BP 96/60
[2019-12-31] MEDS: CIPROFLOXACIN 400 MG/D5W 200 ML (PRE-MIX) IV SCH (09:24)
[2019-12-31] MEDS: DOCUSATE SODIUM 100 MG (COLACE) CAP PO SCH ×2 (09:27→20:19)
[2019-12-31] MEDS: ENOXAPARIN 30 MG/0.3 ML (LOVENOX) SYR SC SCH (09:27)
[2019-12-31] MEDS: SENNA W/DOCUSATE (SENOKOT S) TABLET PO SCH ×2 (09:27→20:19)
[2019-12-31] MEDS: ASPIRIN E.C. 325 MG (ECOTRIN) TABLET PO SCH (09:32)
--- NOTE | 2019-12-31 10:18 | Physical Therapy Daily Note ---
PT Daily Note-Current Subjective Patient is agreeable to therapy at this time. Appearance Patient in recliner with call light and bedside table with in reach. Chair alarm turned on. Mental Status Patient Orientation: Confused Attachments: Mcclure Catheter, IV Transfers SCALE: Activities may be completed with or without assistive devices. 2-Smuizzdyob-jinmcjm completes the activity by him/herself with no assistance from a helper. 5-Set-up or Clean-up Assistance-helper sets up or cleans up; patient completes activity. [place] assists only prior to or following the activity. 4-Supervision or Touching Assistance-helper provides verbal cues and/or touching/steadying and/or contact guard assistance as patient completes activity. Assistance may be provided throughout the activity or intermittently. 3-Partial/Moderate Assistance-helper does LESS THAN HALF the effort. [place] lifts, holds or supports trunk or limbs, but provides less than half the effort. 2-Substantial/Maximal Assistance-helper does MORE THAN HALF the effort. [place] lifts or holds trunk or limbs and provides more than half the effort. 5-Zrkonrsvq-pjqjjv does ALL the effort. Patient does none of the effort to complete the activity. Or, the assistance of 2 or more helpers is required for the patient to complete the activity. If activity was not attempted, code reason: 7-Patient Refused. 9-Not Applicable-not attempted and the patient did not perform the activity before the current illness, exacerbation or injury. 10-Not Attempted due to Environmental Limitations-(lack of equipment, weather restraints, etc.). 88-Not Attempted due to Medical Conditions or Safety Concerns. Roll Left & Right (QC): 2 Lying to Sitting/Side of Bed(Q: 2 Sit to Stand (QC): 3 Chair/Ngm-zj-Uiaru Xfer(QC): 3 Gait Training Does the Patient Walk?: Yes Distance: 80' Walk 10 feet (QC): 4 Walk 50 ft with 2 Turns(QC): 4 Gait Assistive Device: FWW CGA for safety. Patient is able to propel her walker herself but states that her usually does it for her. Wheelchair Training Does the Pt Use a Wheelchair?: No Exercises Seated Therapy Exercises: Ankle pumps, Long arc quads, Hip flexion Seated Reps: 10 (BLE) Treatments Ambulation, bed mobility, transfers, BLE exercises. Assessment Current Status: Fair Progress Patient is able to propel walker herself but does not walk in straight line, she walks off to the sides while walking. Patient is able to perform BLE exerci ses IND but with a limited ROM. PT Natural Gas Trader Goals Natural Gas Trader Goals PT Natural Gas Trader Goals Time Frame: Jan 06, 2020 Roll Left & Right (QC): 3 Sit to Lying (QC): 3 Lying-Sitting on Side/Bed(QC): 3 Sit to Stand (QC): 3 Chair/Yep-us-Egaoo Xfer(QC): 3 Does the Patient Walk: Yes Walk 10 feet (QC): 3 Walk 50ft with 2 Turns (QC): 3 Walk 150 ft (QC): 3 PT Plan Problem List Problem List: Activity Tolerance, Functional Strength, Safety, Balance, Gait, Transfer, Bed Mobility, ROM Treatment/Plan Treatment Plan: Continue Plan of Care Treatment Plan: Bed Mobility, Education, Functional Activity Darrell, Functional Strength, Gait, Safety, Therapeutic Exercise, Transfers Treatment Duration: Jan 06, 2020 Frequency: 5 times per week Estimated Hrs Per Day: .25 hour per day Safety Risks/Education Patient Education: Gait Training, Transfer Techniques Teaching Recipient: Patient Teaching Methods: Discussion Response to Teaching: Reinforcement Needed Time/GCodes Time In: 910 Time Out: 926 Total Billed Treatment Time: 16 Total Billed Treatment 1 visit GT 16 SHABNAM SPANGLER PT Dec 31, 2019 10:18
--- NOTE | 2019-12-31 11:37 | Progress Note - Hospitalist ---
Subjective HPI/CC On Admission Date Seen by Provider: Dec 31, 2019 Time Seen by Provider: 09:30 Monica Perea is an 89-year-old female who presented after having word finding difficulties at home. She reports that it came on suddenly yesterday morning. She denies any focal weakness. She denies any vision changes. She denies any fevers or chills. She denies any chest pain or shortness of breath. She does report some dysuria. She has been feeling nauseous this morning. She has no history of stroke. She lives at home with her . Subjective/Events-last exam she denies any complaints or concerns. She denies any fevers, chills, chest pain, shortness of breath, abdominal pain, nausea, or vomiting. Objective Exam Vital Signs Vital Signs Date Time Temp Pulse Resp B/P (MAP) Pulse Ox O2 Delivery O2 Flow Rate FiO2 12/31/19 08:00 36.6 70 18 96/60 (72) 97 Room Air Capillary Refill : Less Than 3 SecondsLess Than 3 Seconds General Appearance: No Apparent Distress, Thin Respiratory: Lungs Clear, Normal Breath Sounds, No Respiratory Distress Cardiovascular: Regular Rate, Rhythm, No Edema, No Murmur Gastrointestinal: Normal Bowel Sounds, Non Tender Extremity: Normal Inspection, Non Tender Neurologic/Psychiatric: Alert, Normal Mood/Affect Skin: Normal Color, Warm/Dry Results/Procedures Lab Patient resulted labs reviewed. Assessment/Plan Assessment and Plan Assess & Plan/Chief Complaint Urinary tract infection urine culture revealed Klebsiella pneumonia Transition to Macrobid Possible TIA MRI negative for acute stroke continue aspirin and Lipitor symptoms likely attributable to UTI debility continue PT/OT DVT prophylaxis: Lovenox Diagnosis/Problems Diagnosis/Problems (1) UTI (urinary tract infection) Status: Acute Qualifiers: Urinary tract infection type: acute cystitis Hematuria presence: with hematuria Qualified Codes: N30.01 - Acute cystitis with hematuria (2) Encephalopathy acute Status: Acute (3) Debility Status: Acute Clinical Quality Measures DVT/VTE Risk/Contraindication: Risk Factor Score Per Nursin RFS Level Per Nursing on Admit: 1=Low/No VTE PPX Stroke: Date of last known well: Dec 29, 2019 Time of last known well: 10:00 Symptoms onset unknown: No JUANIS MUNOZ MD Dec 31, 2019 11:36
--- NOTE | 2019-12-31 11:39 | ST Dysphagia Evaluation ---
Speech Evaluation-General Medical Diagnosis UTI, AMS, aphasia Onset Date: Dec 29, 2019 Therapy Diagnosis Therapy Diagnosis: Oropharyngeal Dysphagia Precautions Precautions: Aspiration Referral Referring Physician: Dr. Bradley Reason for Referral: Evaluation/Treatment Medical History Pertinent Medical History: Arthritis, Neuropathy Reviewed History: Yes Social History Current Living Status: Spouse Speech PLF/Current-Dysphagia Prior Level of Function Patient reported having a soft and regular diet prior to hospital stay. Subjective Patient was sleeping upon arrival and awoken to complete evaluation tasks. Patient reported that her appetite is decreased, however completed several bites to complete the evaluation. Cognitive Status Patient Orientation: Person, Place, Time, Situation Oral Motor Skills Dentition: Edentalous (Patient was edentalous on top for the evaluation. She had her dentures in her purse, but did not have them at the time.) Denture Type: Full- Lower Current Food Consistancy: Regular Ability to Follow Directions: Good Oral Expression Ability: No Impairment Voice Voice Phonatory-Based Quality: Normal Voice Pitch: Normal Voice Loudness: Normal Face Facial Symmetry: Symmetrical Oral-Facial Assessment Oral-Facial Dentition: Normal Labial Seal Description: Normal Smile: Normal Lingual Protrusion: Normal Lingual ROM: Normal Lingual Strength: Normal Dysphagia Evaluation Consistencies Presented: Thin Liquid, Pureed Dietary Recommendations: Pureed Liquid Recommendations: Thin Swallowing Precautions: Alternate Liquids/Solids, Double Swallow, Decreased Bolus 1/2 Tsp, Liquids from Straw, Oral Supervision Staff, Small Bites and Sips, Sitting Upright 90 Degrees, Sitting 90 Degrees 30 Post Intake Dysphagia Evaluation Summary Patient was admitted to the ICU s/p word finding difficulties. Patient was pres ented thin liquids via 1/2 tsp spoon and straw and presented with no s/s of penetration or aspiration. Patient was then presented puree and mechanical soft consistencies via 1/2 tsp spoon. Patient presented with delayed swallow initiation with mechanical soft and no s/s of penetration or aspiration with puree. It is recommended that the patient receive a DYSPHAGIA I with thin liqui ds. Additionally, patient will utilize compensatory strategies of small bites and sips, alternating liquids and solids, and sitting upright for all oral intake. Barriers to Learning Current medical status. Speech Short Term Goals Short Term Goals Short Term Goals 1. Patient will tolerate least restrictive diet without s/s of aspiration at 90%. 2. Patient will utilize compensatory strategies as trained at 90% with minimal cues. Speech Trouble Tracer Goals Jail Goals Patient will maintain adequate nutrition/hydration via safe and effective swallow function. Speech-Plan Patient/Family Goals Patient/Family Goals: Patient reported wanting to return home to previous level of independence. Treatment Plan Speech Therapy Treatment Plan: Continue Plan of Care Treatment Duration: Jan 07, 2020 Frequency: 2 times per week Estimated Hrs Per Day: .25 hour per day Rehab Potential: Fair Barriers to Learning: Current medical status Pt/Family Agrees to Plan: Yes Safety Risks/Education Teaching Recipient: Patient Teaching Methods: Demonstration, Discussion Response to Teaching: Verbalize Understanding Education Topics Provided: Utilization of compensatory strategies during meal time. Time Speech Therapy Time In: 08:30 Speech Therapy Time Out: 08:45 Total Billed Time: 15 Billed Treatment Time 1, SOL Loo Dec 31, 2019 11:39
--- NOTE | 2019-12-31 11:41 | NUR ---
CM/SS follow up with discharge planning. Plan: The patient will go to [facility] on Friday01/03/20. CM/SS informed and discussed this with the patient and her Jay. They both verbalized understanding and are agreeable with the plan. They stated they did not have any other needs at this time.
[2019-12-31 12:00] VITALS: BP 115/67
--- NOTE | 2019-12-31 14:08 | Occupational Ther Daily Note ---
OT Current Status-Daily Note Subjective Pt found in chair being fed by nurse tech. Pt stated that her " bottom was sore" and c/o pain throughout session. Pt asked for help frequently when asked to perform a task. Mental Status/Objective Patient Orientation: Confused Attachments: Telemetry ADL-Treatment Pt stood from chair with min A, ambulated to bathroom with FWW, and sat on toilet. TACO/s noticed that IV was bleeding, and the nurse was notified and removed the IV. Pt brushed R side of head, and TACO/s helped brush the rest of her hair. Pt stood from toilet min A, reached area to wipe but was unable to cleanse efficiently, ENVIRONMENTAL ENGINEERING TECHNICIAN/s completed toileting hygiene. Pt stood from toilet with min A, ambulated to bed, sat on EOB to don brief with mod A, and stood to pull up brief with mod A. She doffed gown independently but required min A to don clean gown. Mod A for sitting to supine. Pt required verbal encouragement to complete tasks without assistance. Pt positioned comfortably in bed with call light in reach and all needs met. Safety measures in place. Therapy Code Descriptions/Definitions Functional Prosper Measure: 0=Not Assessed/NA 4=Minimal Assistance 1=Total Assistance 5=Supervision or Setup 2=Maximal Assistance 6=Modified Prosper 3=Moderate Assistance 7=Complete IndependenceSCALE: Activities may be completed with or without assistive devices. 9-Afojjkvirg-ffwhzwb completes the activity by him/herself with no assistance f rom a helper. 5-Set-up or Clean-up Assistance-helper sets up or cleans up; patient completes activity. Deep [place] assists only prior to or following the activity. 4-Supervision or Touching Assistance-helper provides verbal cues and/or touching/steadying and/or contact guard assistance as patient completes activity. Assistance may be provided throughout the activity or intermittently. 3-Partial/Moderate Assistance-helper does LESS THAN HALF the effort. Deep [place] lifts, holds or supports trunk or limbs, but provides less than half the effort. 2-Substantial/Maximal Assistance-helper does MORE THAN HALF the effort. [place] lifts or holds trunk or limbs and provides more than half the effort. 2-Voyfyktbi-pafsrm does ALL the effort. Patient does none of the effort to complete the activity. Or, the assistance of 2 or more helpers is required for the patient to complete the activity. If activity was not attempted, code reason: 7-Patient Refused. 9-Not Applicable-not attempted and the patient did not perform the activity before the current illness, exacerbation or injury. 10-Not Attempted due to Environmental Limitations-(lack of equipment, weather restraints, etc.). 88-Not Attempted due to Medical Conditions or Safety Concerns. Upper Body Dressing (QC): 3 Lower Body Dressing (QC): 3 Toileting Hygiene (QC): 2 (Pt able to reach area but not able to efficiently cleanse after BM. ) Toilet Transfer (QC): 3 OT Senior Care Goals Indoor Landscape Architect Goals Time Frame: Jan 06, 2020 Eating (QC): 6 Oral Hygiene (QC): 6 Toileting Hygiene (QC): 3 Shower/Bathe Self (QC): 3 Upper Body Dressing (QC): 3 Lower Body Dressing (QC): 3 On/Off Footwear (QC): 3 Additional Goals: 1-Demonstrate ADL Tasks, 2-Verbalize Understanding, 3-ImproveStrength/Darrell 1=Demonstrate adherence to instructed precautions during ADL tasks. 2=Patient will verbalize/demonstrate understanding of assistive devices/modifications for ADL. 3=Patient will improve strength/tolerance for activity to enable patient to perform ADL's. OT Education/Plan Problem List/Assessment Assessment: Decreased Activ Tolerance, Decreased Safety Aware, Decreased UE Strength, Impaired Bed Mobility, Impaired Cognition, Impaired I ADL's, Impaired Self-Care Skills Discharge Recommendations Plan/Recommendations: Continue POC Treatment Plan/Plan of Care Patient would benefit from OT for education, treatment and training to promote independence in ADL's, mobility, safety and/or upper extremity function for ADL's. Plan of Care: ADL Retraining, Caregiver Training, Functional Mobility, UE Funct Exercise/Act Treatment Duration: Jan 06, 2020 Frequency: 5 times per week Estimated Hrs Per Day: .25 hour per day Agreement: Yes Rehab Potential: Fair Time/GCodes Start Time: 13:31 Stop Time: 13:54 Total Time Billed (hr/min): 23 Billed Treatment Time 1 visit- 2 ADL(23 min) MAYRA BORGES Dec 31, 2019 14:08
[2019-12-31 15:22] VITALS: BP 118/64
[2019-12-31 19:48] VITALS: BP 138/63
[2019-12-31] MEDS: NITROFURANTOIN 100 MG (MACROBID) CAPSULE PO SCH (20:19)
[2020-01-01] VITALS: BP 125/67
[2020-01-01 04:00] VITALS: BP 125/66
[2020-01-01] MEDS: ONDANSETRON 4 MG/2 ML (SDV) Z0FRAN IV PRN (05:00)
[2020-01-01 08:00] VITALS: BP 136/63
[2020-01-01] MEDS: DOCUSATE SODIUM 100 MG (COLACE) CAP PO SCH ×2 (09:41→21:40)
[2020-01-01] MEDS: ASPIRIN E.C. 325 MG (ECOTRIN) TABLET PO SCH (09:41)
[2020-01-01] MEDS: SENNA W/DOCUSATE (SENOKOT S) TABLET PO SCH ×2 (09:41→21:40)
[2020-01-01] MEDS: NITROFURANTOIN 100 MG (MACROBID) CAPSULE PO SCH ×2 (09:41→21:40)
[2020-01-01] MEDS: ENOXAPARIN 30 MG/0.3 ML (LOVENOX) SYR SC SCH (11:09)
[2020-01-01 11:16] VITALS: BP 139/71
--- NOTE | 2020-01-01 11:16 | Progress Note - Hospitalist ---
Subjective HPI/CC On Admission Date Seen by Provider: Jan 01, 2020 Time Seen by Provider: 09:15 Monica Perea is an 89-year-old female who presented after having word finding difficulties at home. She reports that it came on suddenly yesterday morning. She denies any focal weakness. She denies any vision changes. She denies any fevers or chills. She denies any chest pain or shortness of breath. She does report some dysuria. She has been feeling nauseous this morning. She has no history of stroke. She lives at home with her . Subjective/Events-last exam She reports that she is feeling sleepy this morning. She is feeling weak. She denies any fevers or chills. She denies any chest pain or shortness of breath. She has no other complaints or concerns. Objective Exam Vital Signs Vital Signs Date Time Temp Pulse Resp B/P (MAP) Pulse Ox O2 Delivery O2 Flow Rate FiO2 01/01/20 08:00 96 Room Air 01/01/20 08:00 36.3 68 16 136/63 (87) Capillary Refill : Less Than 3 SecondsLess Than 3 Seconds General Appearance: No Apparent Distress, Thin Respiratory: Lungs Clear, Normal Breath Sounds, No Respiratory Distress Cardiovascular: Regular Rate, Rhythm, No Edema, No Murmur Gastrointestinal: Normal Bowel Sounds, Non Tender, Soft Extremity: Normal Inspection, Non Tender, No Pedal Edema Neurologic/Psychiatric: Alert, Normal Mood/Affect Skin: Warm/Dry, Pallor Results/Procedures Lab Patient resulted labs reviewed. Assessment/Plan Assessment and Plan Assess & Plan/Chief Complaint Urinary tract infection urine culture revealed Klebsiella pneumonia Continue Macrobid Possible TIA MRI negative for acute stroke continue aspirin and Lipitor symptoms likely attributable to UTI debility continue PT/OT Dysphagia Continue ST Dysphagia diet DVT prophylaxis: Lovenox Diagnosis/Problems Diagnosis/Problems (1) UTI (urinary tract infection) Status: Acute Qualifiers: Urinary tract infection type: acute cystitis Hematuria presence: with hematuria Qualified Codes: N30.01 - Acute cystitis with hematuria (2) Encephalopathy acute Status: Resolved Resolution Date/Time: 01/01/20 @ 11:16 (3) Debility Status: Acute (4) Dysphagia Status: Acute Clinical Quality Measures DVT/VTE Risk/Contraindication: Risk Factor Score Per Nursin RFS Level Per Nursing on Admit: 1=Low/No VTE PPX Stroke: Date of last known well: Dec 29, 2019 Time of last known well: 10:00 Symptoms onset unknown: No JUANIS MUNOZ MD Jan 01, 2020 11:16
[2020-01-01 15:53] VITALS: BP 124/68
[2020-01-01 20:00] VITALS: BP 119/66
[2020-01-02] VITALS (7 sets, daily range): BP systolic 118–160; BP diastolic 69–76
[2020-01-02] MEDS: ASPIRIN E.C. 325 MG (ECOTRIN) TABLET PO SCH (08:34)
[2020-01-02] MEDS: SENNA W/DOCUSATE (SENOKOT S) TABLET PO SCH ×2 (08:34→19:24)
[2020-01-02] MEDS: DOCUSATE SODIUM 100 MG (COLACE) CAP PO SCH ×2 (08:34→19:24)
[2020-01-02] MEDS: NITROFURANTOIN 100 MG (MACROBID) CAPSULE PO SCH ×2 (08:34→19:24)
--- NOTE | 2020-01-02 11:49 | Progress Note - Hospitalist ---
Subjective HPI/CC On Admission Date Seen by Provider: Jan 02, 2020 Time Seen by Provider: 09:20 Monica Peera is an 89-year-old female who presented after having word finding difficulties at home. She reports that it came on suddenly yesterday morning. She denies any focal weakness. She denies any vision changes. She denies any fevers or chills. She denies any chest pain or shortness of breath. She does report some dysuria. She has been feeling nauseous this morning. She has no history of stroke. She lives at home with her . Subjective/Events-last exam She reports that she just doesn't feel well today. She has no specific complaints or concerns. She says that she slept well. She denies any nausea or vomiting. She denies any pain. Objective Exam Vital Signs Vital Signs Date Time Temp Pulse Resp B/P (MAP) Pulse Ox O2 Delivery O2 Flow Rate FiO2 01/02/20 08:00 36.4 69 20 160/69 (99) 98 Room Air Capillary Refill : Less Than 3 SecondsLess Than 3 Seconds General Appearance: No Apparent Distress, Chronically ill, Thin Respiratory: Lungs Clear, Normal Breath Sounds, No Respiratory Distress Cardiovascular: Regular Rate, Rhythm, No Edema, No Murmur Gastrointestinal: Normal Bowel Sounds, Non Tender, Soft Extremity: Normal Inspection, Non Tender, No Pedal Edema Neurologic/Psychiatric: Alert, Normal Mood/Affect Skin: Warm/Dry, Pallor Results/Procedures Lab Patient resulted labs reviewed. Assessment/Plan Assessment and Plan Assess & Plan/Chief Complaint Urinary tract infection urine culture revealed Klebsiella pneumonia Continue Macrobid Possible TIA MRI negative for acute stroke continue aspirin and Lipitor symptoms likely attributable to UTI debility continue PT/OT Planning for discharge [facility] tomorrow Dysphagia Continue ST Dysphagia diet DVT prophylaxis: Lovenox Diagnosis/Problems Diagnosis/Problems (1) UTI (urinary tract infection) Status: Acute Qualifiers: Urinary tract infection type: acute cystitis Hematuria presence: with hematuria Qualified Codes: N30.01 - Acute cystitis with hematuria (2) Encephalopathy acute Status: Resolved Resolution Date/Time: 01/01/20 @ 11:16 (3) Debility Status: Acute (4) Dysphagia Status: Acute Clinical Quality Measures DVT/VTE Risk/Contraindication: Risk Factor Score Per Nursin RFS Level Per Nursing on Admit: 1=Low/No VTE PPX Stroke: Date of last known well: Dec 29, 2019 Time of last known well: 10:00 Symptoms onset unknown: No JUANIS MUNOZ MD Jan 02, 2020 11:49
[2020-01-02] MEDS: ENOXAPARIN 30 MG/0.3 ML (LOVENOX) SYR SC SCH (11:55)
[2020-01-03] VITALS: BP 133/69
[2020-01-03 04:00] VITALS: BP 133/69
[2020-01-03 08:00] VITALS: BP 146/76
[2020-01-03] MEDS: DOCUSATE SODIUM 100 MG (COLACE) CAP PO SCH (09:09)
[2020-01-03] MEDS: SENNA W/DOCUSATE (SENOKOT S) TABLET PO SCH (09:09)
[2020-01-03] MEDS: NITROFURANTOIN 100 MG (MACROBID) CAPSULE PO SCH (09:09)
[2020-01-03] MEDS: ASPIRIN E.C. 325 MG (ECOTRIN) TABLET PO SCH (09:09)
--- NOTE | 2020-01-03 10:30 | NUR ---
Important Message from Medicare presented, reviewed, signed, and placed in patient chart. Patient voiced no intention to appeal and deny any needs or further questions at this time.
--- NOTE | 2020-01-03 10:31 | Discharge Inst-Skilled Nursing ---
Discharge Inst-Skilled NF Chief Complaint Monica Perea is an 89-year-old female who presented after having word finding difficulties at home. She reports that it came on suddenly yesterday morning. She denies any focal weakness. She denies any vision changes. She denies any fevers or chills. She denies any chest pain or shortness of breath. She does report some dysuria. She has been feeling nauseous this morning. She has no history of stroke. She lives at home with her . Consult/Follow Up/Orders Follow Up Appt.: With Dr Aguilar in 1 week. Skilled NF Admit to: [facility] Certification ([facility]) I certify that SNF services are required to be given on an inpatient basis because of the above named patient's need for halfway care on a continuing basis for the conditions(s) for which he/she was receiving inpatient hospital services prior to his/her transfer to the SNF. Nursing Home Facility Order: Nursing Services, [facility] Solution Architect-Evaluate & Treat, Physical Therapy-Evaluate & Treat, Speech Language-Evaluate & Treat Oxygen Delivery Method: Room Air Discharge Diet: No Restrictions Daily Activity as Tolerated: Yes Resuscitation Status: Do Not Resuscitate New & Resume Previous Orders Dewey David Jan 03, 2020 10:30 DEWEY DAVID MD Jan 03, 2020 10:31
--- NOTE | 2020-01-03 10:32 | Discharge Summary ---
Diagnosis/Chief Complaint Date of Admission Dec 31, 2019 at 10:51 Date of Discharge Discharge Date: Jan 03, 2020 Admission Diagnosis urinary tract infection Primary Care Eric Aguilar MD Discharge Diagnosis (1) UTI (urinary tract infection) Status: Acute (2) Encephalopathy acute Status: Resolved (3) Debility Status: Acute (4) Dysphagia Status: Acute Discharge Summary Discharge Physical Exam Allergies: Coded Allergies: cefdinir (Verified Allergy, Mild, RASH, 07/26/17) Vitals & I&Os Vital Signs Date Time Temp Pulse Resp B/P (MAP) Pulse Ox O2 Delivery O2 Flow Rate FiO2 01/03/20 08:00 97 Room Air 01/03/20 08:00 36.5 72 16 146/76 (99) Hospital Course Labs (last 24 hrs) Microbiology 12/29/19 Urine Culture - Final, Complete Klebsiella pneumoniae Patient resulted labs reviewed. Discharge Home Medications: Active Scripts Active Reported Tramadol HCl 50 Mg Tablet 25-50 Mg PO Q8H PRN Ibuprofen 200 Mg Tablet 400 Mg PO Q8H PRN Tylenol (Acetaminophen) 325 Mg Tablet 325-650 Mg PO Q8H PRN Instructions to patient/family Please see electronic discharge instructions given to patient. Clinical Quality Measures DVT/VTE Risk/Contraindication: Risk Factor Score Per Nursin RFS Level Per Nursing on Admit: 1=Low/No VTE PPX Stroke: Date of last known well: Dec 29, 2019 Time of last known well: 10:00 Symptoms onset unknown: No Problem Qualifiers (1) UTI (urinary tract infection): Urinary tract infection type: acute cystitis Hematuria presence: with hematuria Qualified Codes: N30.01 - Acute cystitis with hematuria DEWEY SILVEIRA MD Jan 03, 2020 10:32
--- NOTE | 2020-01-03 10:58 | NUR ---
PALLIATIVE CARE RN in to see patient. She is awake in the bed and answered questions pertaining to orientation. Plan is to discharge today to [facility] skilled placement. No family is in the room at the moment to discuss future hospice needs.
[2020-01-03] MEDS: ENOXAPARIN 30 MG/0.3 ML (LOVENOX) SYR SC SCH (11:17)
--- NOTE | 2020-01-03 11:56 | NUR ---
CM/SS visited with the patient for discharge planning. Plan: The patient will discharge to [facility] today 01/03 at 1:30. Finalized discharge were faxed to facility. Care Assessment: A care assessment was completed and signed by the patient and this SS. It was faxed to [facility] and [facility]. CM/SS contacted Jay the patients spouse who verbalized understanding of discharge time. No other needs at this time.
[2020-01-03 12:00] VITALS: BP 136/77
[2020-01-03] MEDS ORDERED: TRAM50TA3 PO (12:21)
--- NOTE | 2020-01-03 12:24 | NUR ---
Initial visit with Ashly. She is Yazdanism and welcomed prayer.
--- NOTE | 2020-01-03 13:30 | NUR ---
PALLIATIVE CARE RN: This RN spoke with patient's and a friend of the family about future POC if she does not progress with her SKILLED placement at the [facility]. Hospice was discussed and the is interested when the time is right. Patient will discharge today to new SKILLED placement at [facility] for today.
== END 2020-01-03 13:32 | DRG 690 ==
LOC: EDUNIT# 10:54 → ER 10:55 → 4TH 13:12 → OBSVTOIN 12-31 10:51
PROVIDERS: ADMIT Internal Medicine; ATTEND Internal Medicine
DX: N30.01 Acute cystitis with hematuria (principal); B96.1 Klebsiella pneumoniae [K. pneumoniae] as the cause of diseases classified elsewhere; G93.40 Encephalopathy, unspecified; G45.9 Transient cerebral ischemic attack, unspecified; R47.01 Aphasia; R53.81 Other malaise; F03.90 Unspecified dementia, unspecified severity, without behavioral disturbance, psychotic disturbance, mood disturbance, and anxiety; G62.9 Polyneuropathy, unspecified; Z66 Do not resuscitate; R13.12 Dysphagia, oropharyngeal phase; K21.9 Gastro-esophageal reflux disease without esophagitis; M81.0 Age-related osteoporosis without current pathological fracture; M19.91 Primary osteoarthritis, unspecified site; M79.7 Fibromyalgia; M41.9 Scoliosis, unspecified; E03.9 Hypothyroidism, unspecified; F32.9 Major depressive disorder, single episode, unspecified; R29.701 NIHSS score 1; Z87.891 Personal history of nicotine dependence; Z85.3 Personal history of malignant neoplasm of breast; Z96.652 Presence of left artificial knee joint
CPT/HCPCS: 36415; 51702; 70450; 70496; 70498; 70551; 71045; 80053; 80061; 81000; 82962; 84484; 85025; 85379; 85610; 85730; 87077; 87088; 87186; 93005; 93041; 94664; G0378

== ENCOUNTER → 2020-01-18 | Outpatient (CLI) | payer MEDICARE, OTHER ==
[~2020-01-18] MED LIST changes: +ACET325T38 PO; +IBUP-2473 PO; +TRAM50TA3 PO
[2020-01-18 16:55] LABS: BILIRUBIN,URINE NEGATIVE (NEGATIVE); CLARITY,URINE CLOUDY; COLOR,URINE YELLOW; GLUCOSE, URINE (UA) NEGATIVE (NEGATIVE); KETONES,URINE NEGATIVE (NEGATIVE); LEUKOCYTE ESTERASE ,URINE 1+ (NEGATIVE); NITRITE,URINE NEGATIVE (NEGATIVE); PH,URINE 6.5 (5-9); PROTEIN,URINE 1+ (NEGATIVE)
[2020-01-18 17:03] LABS: BACTERIA,URINE MODERATE /HPF; RBC,URINE TNTC /HPF
== END ==
LOC: LABNPT 16:49
PROVIDERS: ATTEND Internal Medicine
DX: R30.0 Dysuria (principal); R31.9 Hematuria, unspecified
CPT/HCPCS: 81000; 87088

== ENCOUNTER → 2020-04-22 | Outpatient (CLI) | payer MEDICARE, OTHER ==
[2020-04-22 19:35] LABS: BILIRUBIN,URINE NEGATIVE (NEGATIVE); CLARITY,URINE CLOUDY; COLOR,URINE YELLOW; GLUCOSE, URINE (UA) NEGATIVE (NEGATIVE); KETONES,URINE NEGATIVE (NEGATIVE); LEUKOCYTE ESTERASE ,URINE 3+ (NEGATIVE); NITRITE,URINE NEGATIVE (NEGATIVE); PROTEIN,URINE 2+ (NEGATIVE)
[2020-04-22 19:42] LABS: BACTERIA,URINE MODERATE /HPF; WBC,URINE TNTC /HPF
[2020-04-22 19:43] LABS: RBC,URINE RARE /HPF; SQUAMOUS EPITHELIAL CELL,UR 0-2 /HPF
== END ==
LOC: CVS 19:28
PROVIDERS: ATTEND Internal Medicine
DX: Z01.89 Encounter for other specified special examinations (principal)
CPT/HCPCS: 81000; 87088

== ENCOUNTER → 2020-04-25 | Outpatient (CLI) | payer MEDICARE, OTHER ==
[2020-04-25 19:49] LABS: BILIRUBIN,URINE NEGATIVE (NEGATIVE); CLARITY,URINE TURBID; COLOR,URINE YELLOW; GLUCOSE, URINE (UA) NEGATIVE (NEGATIVE); KETONES,URINE NEGATIVE (NEGATIVE); LEUKOCYTE ESTERASE ,URINE 3+ (NEGATIVE); NITRITE,URINE NEGATIVE (NEGATIVE); PROTEIN,URINE 2+ (NEGATIVE)
[2020-04-25 19:59] LABS: BACTERIA,URINE TRACE /HPF; SQUAMOUS EPITHELIAL CELL,UR 0-2 /HPF; WBC,URINE TNTC /HPF
== END ==
LOC: CVS 19:44
PROVIDERS: ATTEND Internal Medicine
DX: Z01.89 Encounter for other specified special examinations (principal)
CPT/HCPCS: 81000; 87077; 87088